=== PATIENT | female | born 1980 | race American Indian/Alaskan Native ===

== ENCOUNTER 2017-02-06 13:34 | Emergency (ER) | payer BC ==
[2017-02-06 13:46] VITALS: BP 121/80
[2017-02-06] MEDS ORDERED: HYDROmorphone 1 MG/ML Syringe IVPUSH ONE (13:58)
[2017-02-06] MEDS ORDERED: Metoclopramide 10 MG/2 ML SDV IVPUSH ONE (13:58)
[2017-02-06] MEDS ORDERED: Dextrose 5%-0.9% NaCl 1,000 ML IV SCH (14:00)
--- NOTE | 2017-02-06 14:02 | EDM.PDOC ---
ED HPI GENERAL MEDICAL PROBLEM - General Chief Complaint: Abdominal Pain Stated Complaint: ABDOMINAL PAIN- 14 WEEKS Time Seen by Provider: 02/06/17 13:58 Source of Information: Reports: Patient History Limitations: Reports: No Limitations - History of Present Illness INITIAL COMMENTS - FREE TEXT/NARRATIVE: 36-year-old female of [place] ancestry presents to the ED with acute onset of left flank pain rating down towards the left groin. She states initial pain started in the left lower abdomen suprapubic area on Monday, February 03. She was seen at the clinic and I [facility] walk-in clinic on Monday and was given a shot of morphine which did help the pain. She was also prescribed antibiotic for suspected UTI but never filled them. Now she has some fever some chills. Pain has progressed up to the left flank. She is 14 weeks gestation with no problems in the . Previous history of kidney stones and requiring lithotripsy but she can`t remeber which side. No other abdominal surgeries. Can not keep anything down today with intractable nausea and vomiting. Onset: Gradual (Starting on Monday, February 03 with slight lower abdominal pain perhaps slight left flank pain.) Onset Date: 02/06/17 (Pain became much worse yesterday and overnight.) Duration: Hour(s): Location: Reports: Abdomen (Left flank left hemiabdomen down to the groin.), Back, Other Quality: Reports: Ache (Some discomfort suprapubically and perhaps a little bit in the right lower abdomen as well.), Burning, Pressure Severity: Severe (Pain 10 out of 10 at times.) Improves with: Reports: None Worsens with: Reports: None Context: Denies: Activity, Exercise, Lifting, Sick Contact, Trauma, Other Associated Symptoms: Reports: Fever/Chills, Loss of Appetite, Malaise, Nausea/ Vomiting (Hasn't been able to keep anything down for the last 12 hours.). 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: Other (see below) Left Flank Pain Score (Numeric/FACES): 9 - Related Data Allergies Allergy/AdvReac Type Severity Reaction Status Date / Time No Known Allergies Allergy Verified 02/06/17 13:46 Home Meds: Home Meds Acetaminophen with Codeine [Tylenol with Codeine #3 Tablet] 1 each PO DAILY PRN 02/06/17 [History] Amoxicillin [Amoxil] 500 mg PO Q8H #21 cap 02/06/17 [Rx] Ondansetron [Zofran ODT] 4 mg PO Q6H #10 tab.dis 02/06/17 [Rx] oxyCODONE HCl/Acetaminophen [Percocet 5-325 mg Tablet] 1 each PO Q4H #24 tablet 02/06/17 [Rx] Past Medical History - Past Health History Medical/Surgical History: Denies Medical/Surgical History Genitourinary History: Reports: 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 Denies: Weight Loss HEENT: Reports: No Symptoms Respiratory: Denies: Shortness of Breath, Wheezing, Pleuritic Chest Pain, Cough , Sputum, Hemoptysis, Other Cardiovascular: Reports: No Symptoms Endocrine: Reports: Fatigue GI/Abdominal: Reports: Abdominal Pain, Decreased Appetite, Nausea, Vomiting ( Intractable this morning.). Denies: Constipation (See history of present illness), Diarrhea : Reports: Frequency. Denies: Urgency Musculoskeletal: Reports: Back Pain Skin: Reports: No Symptoms (Left flank pain) Neurological: Reports: No Symptoms Psychiatric: Reports: No Symptoms Hematologic/Lymphatic: Reports: No Symptoms Immunologic: Reports: No Symptoms ED EXAM, RENAL/ - Physical Exam Exam: See Below Exam Limited By: No Limitations General Appearance: Alert, WD/WN, Moderate Distress Eye Exam: Bilateral Eye: Normal Inspection Throat/Mouth: Normal Inspection, Normal Oropharynx, Other Head: Atraumatic, Normocephalic (Tongue is dry and coated) Neck: Normal Inspection, Supple, Non-Tender, Full Range of Motion. No: Lymphadenopathy (L), Lymphadenopathy (R) Respiratory/Chest: No Respiratory Distress, Lungs Clear, Normal Breath Sounds, No Accessory Muscle Use GI/Abdominal: Soft, No Organomegaly (Slightly hypoactive bowel sounds.), No Abnormal Bruit (Gravid uterus at 14 weeks gestation clinically.), No Mass, Pelvis Stable, Abnormal Bowel Sounds, Other. No: Rigid, Rebound, Hepatomegaly, Splenomegaly Back Exam: CVA Tenderness (L), Decreased Range of Motion Extremities: Normal Inspection, Normal Range of Motion, Non-Tender, No Pedal Edema, Normal Capillary Refill Neurological: Alert, Oriented, CN II-XII Intact, Normal Cognition Psychiatric: Normal Affect, Normal Mood Skin Exam: Warm, Dry, Intact, Normal Color, No Rash Course - Vital Signs Last Recorded V/S: Last Vital Signs Temp 36.2 C 02/06/17 13:43 Pulse 73 02/06/17 13:43 Resp 18 02/06/17 13:43 BP 121/80 02/06/17 13:43 Pulse Ox 98 02/06/17 13:43 - Orders/Labs/Meds Orders: Active Orders 24 hr Category Date Time Status Dextrose 5%-0.9% NaCl [Dextrose 5%-Normal Saline] 1,000 Med 02/06/17 14:00 Active ml IV ASDIRECTED Medication Orders Dextrose/Sodium Chloride (Dextrose 5%-Normal Saline) 1,000 mls @ 999 mls/hr IV ASDIRECTED ROBERTO Last Admin: 02/06/17 14:08 Dose: 999 mls/hr Labs: Laboratory Tests 02/06/17 02/06/17 02/06/17 Range/Units 14:00 14:00 15:40 WBC 9.78 (3.98-10.04) K/mm3 RBC 4.19 (3.98-5.22) M/mm3 Hgb 12.2 (11.2-15.7) gm/L Hct 36.4 (34.1-44.9) % MCV 86.9 (79.4-94.8) fl MCH 29.1 (25.6-32.2) pg MCHC 33.5 (32.2-35.5) g/dl RDW Std Deviation 40.3 (36.4-46.3) fL Plt Count 234 (182-369) K/mm3 MPV 11.0 (9.4-12.3) fl Neutrophils % (Manual) 84 H (40-60) % Band Neutrophils % 0 (0-10) % Lymphocytes % (Manual) 8 L (20-40) % Atypical Lymphs % 0 % Monocytes % (Manual) 6 (2-10) % Eosinophils % (Manual) 2 (0.7-5.8) % Basophils % (Manual) 0 L (0.1-1.2) Toxic Granulation Few Platelet Estimate Adequate Plt Morphology Comment Normal Anisocytosis 1+ slight RBC Morph Comment Not Reportable Sodium 140 (136-145) mEq/L Potassium 3.5 (3.5-5.1) mEq/L Chloride 105 (98-107) mEq/L Carbon Dioxide 21 (21-32) mEq/L Anion Gap 17.5 H (5-15) BUN 7 (7-18) mg/dL Creatinine 0.6 (0.55-1.02) mg/dL Est Cr Clr Drug Dosing 104.49 mL/min Estimated GFR (MDRD) > 60 (>60) mL/min BUN/Creatinine Ratio 11.7 L (14-18) Glucose 102 (74-106) mg/dL Calcium 8.9 (8.5-10.1) mg/dL Total Bilirubin 0.3 (0.2-1.0) mg/dL AST 18 (15-37) U/L ALT 21 (14-59) U/L Alkaline Phosphatase 92 (46-116) U/L C-Reactive Protein 2.1 H* (<1.0) mg/dL Total Protein 7.2 (6.4-8.2) g/dl Albumin 3.1 L (3.4-5.0) g/dl Globulin 4.1 gm/dL Albumin/Globulin Ratio 0.8 L (1-2) Urine Color Yellow (Yellow) Urine Appearance Clear (Clear) Urine pH 7.0 (5.0-8.0) Ur Specific [place] 1.020 (1.005-1.030) Urine Protein 1+ H (Negative) Urine Glucose (UA) 1+ H (Negative) Urine Ketones 3+ H (Negative) Urine Occult Blood Trace-intact H (Negative) Urine Nitrite Negative (Negative) Urine Bilirubin 1+ H (Negative) Urine Urobilinogen 1.0 (0.2-1.0) Ur Leukocyte Esterase Negative (Negative) Urine RBC 5-10 H (0-5) /hpf Urine WBC 0-5 (0-5) /hpf Ur Epithelial Cells 10-20 H (0-5) /hpf Amorphous Sediment Few H (NOT SEEN) /hpf Urine Bacteria Few (FEW) /hpf Urine Mucus Few (FEW) /hpf Meds: Medications Generic Name Dose Route Start Last Admin Trade Name Madan PRN Reason Stop Dose Admin Dextrose/Sodium Chloride 1,000 mls @ 999 mls/hr 02/06/17 14:00 02/06/17 14:08 Dextrose 5%-Normal Saline IV 999 mls/hr ASDIRECTED ROBERTO Administration Discontinued Medications Generic Name Dose Route Start Last Admin Trade Name Freq PRN Reason Stop Dose Admin Hydromorphone HCl 1 mg 02/06/17 13:58 02/06/17 14:10 Dilaudid IVPUSH 02/06/17 13:59 1 mg ONETIME ONE Administration Metoclopramide HCl 7.5 mg 02/06/17 13:58 02/06/17 14:08 Reglan IVPUSH 02/06/17 13:59 7.5 mg ONETIME ONE Administration - Radiology Interpretation Free Text/Narrative:: 36-year-old female presents to the ED with diffuse left myranda-abdominal pain left flank pain. She claims to have fever and chills she is afebrile at this time. She has a history of renal lithiasis with previous lithotripsy but Member which side it was on. She had pain in her left flank area a bit on Monday but diffuse lower abdominal pain started the following day and seemed to progress upwards towards the flanks suggesting urinary tract infection. Of note she is 14 weeks gestation. She therefore cannot have x-rays of course and will have ultrasound of her left kidney carried out. Routine labs including else is to be done. Since she is afebrile I did not order blood cultures at this time. She is in quite significant pain. Given Dilaudid 1 mg IV with Reglan 7.5 mg IV for pain relief. IV is D5 normal saline at open since she has not been able to eat or drink at all today due to intractable nausea and vomiting. I history she was diagnosed with his suspect UTI at the clinic on Monday but did not fill the antibiotics. She got a shot of morphine which seemed to help the pain at that time - Re-Assessments/Exams Free Text/Narrative Re-Assessment/Exam: 02/06/17 16:15 renal ultrasound revealed a 6 mm suspect nonobstructing stone within the left renal parenchyma. There is slightly prominent upper pole of the collecting system seen within the left kidney which could represent a obstructing stone that we cannot visualize. There is no other findings of significant hydronephrosis. The right kidney is 11.9 cm in length and the left is 12.9. Urinalysis now done does not reveal any signs of infection. There is 5- 10 RBCs per power field and 3+ blood on the dip. This suggests a stone. Clinically this is the way she is presenting as well. I'm going to place her on Percocet tabs 12/21/24 one or 2 every 4-6 hours needed for pain relief with Zofran 4 mg sublingual every 4-6 hours. For nausea or vomiting. Will cover with antibiotic because of the will use amoxicillin 500 mg 3 times daily for the next week. She is to strain the urine if the stone is not passed in the next week she will follow-up with urology because of complications of . Departure - Departure Time of Disposition: 16:17 Disposition: Home, Self-Care 01 Condition: Fair Clinical Impression: Flank pain, Renal colic on left side - Discharge Information Prescriptions: Amoxicillin [Amoxil] 500 mg PO Q8H #21 cap Ondansetron [Zofran ODT] 4 mg PO Q6H #10 tab.dis oxyCODONE HCl/Acetaminophen [Percocet 5-325 mg Tablet] 1 each PO Q4H #24 tablet Instructions: Renal Colic, [id number], Flank Pain Referrals: Patti Lagos MD [Primary Care Provider] - Forms: ED Department Discharge Additional Instructions: Evaluation in the emergency room today in regards to severe left flank pain so she with nausea and vomiting today. Pain started 4 days ago and has been intermittent but much worse over the last 24 hours. Complicated by being 14 weeks . This does not allow us to x-ray or use CT. Ultrasound of the left kidney reveals it to be slightly more prominent than the right side and suggestive of upper pole of the ureter being slightly dilated suggesting a possible stone low this. There is a 6 mm stone within the tissue of the left kidney. No stones were identified on the right side. The urinalysis shows 5-10 red blood cells per high-power field and no signs of infection. Therefore it appears to likely have a recurrence of a stone on the left side. At this time we 're going to adopt a wait and see approach and see if the stone will pass on its own over the next 7-8 days. May use Percocet tablets 5/3/25 milligrams strength one or 2 every 4-6 hours needed for pain relief. Her nausea may use Zofran 4 mg under the tongue every 4-6 hours as needed. Amoxicillin 500 mg 3 times daily for the next week to prevent any infection developing from obstruction of the stone as this could potentially complicate the . Strain the urine to see if the stone has passed. Particularly when the pain comes down into the right groin. If the stone fails to pass by next Monday then I suggest follow-up with urologist is required. An MRI of the abdomen could be done to identify stone obstruction and then have it lithotripsy in the early part of . If we wait too long the will be too large to allow lithotripsy. - My Orders Last 24 Hours: My Active Orders 02/06/17 14:00 Dextrose 5%-0.9% NaCl [Dextrose 5%-Normal Saline] 1,000 ml IV ASDIRECTED - Assessment/Plan Last 24 Hours: My Active Orders 02/06/17 14:00 Dextrose 5%-0.9% NaCl [Dextrose 5%-Normal Saline] 1,000 ml IV ASDIRECTED
--- NOTE | 2017-02-06 15:19 | US ---
Renal ultrasound: Multiple real-time images of the kidneys were obtained. Small hyperechoic area is seen within the mid left kidney which is compatible with nonobstructing stone measuring about 6 mm. Slightly prominent upper pole collecting system is seen within the left kidney. No other findings of hydronephrosis are seen. No cyst or solid abnormality is seen within the kidneys. Right kidney measures 11.9 cm in length. Left kidney measures 12.9 cm in length. Impression: 1. Slightly prominent upper pole collecting system within the left kidney but no other findings of hydronephrosis are seen. This finding could represent early hydronephrosis from nonvisualized ureteral obstruction. 2. Small nonobstructing stone noted within the left kidney. 3. No additional abnormality is identified on renal ultrasound exam. Diagnostic code #3
== END 2017-02-06 16:35 | disposition home or self-care (01) ==
LOC: JD.ED 13:34
DX: O26.832 Pregnancy related renal disease, second trimester (principal); N23 Unspecified renal colic; Z87.891 Personal history of nicotine dependence; Z79.899 Other long term (current) drug therapy; Z3A.14 14 weeks gestation of pregnancy
CPT/HCPCS: 36415; 76770; 80053; 81001; 85025; 86140; 96361; 96374; 96375; 99284; J1170; J2765; J7042

== ENCOUNTER 2017-02-26 01:24 | Emergency (ER) | payer BC ==
[2017-02-26 01:29] VITALS: BP 102/59
[2017-02-26] MEDS ORDERED: HYDROmorphone 1 MG/ML Syringe IVPUSH ONE (01:35)
--- NOTE | 2017-02-26 02:14 | EDM.PDOC ---
ED HPI GENERAL MEDICAL PROBLEM - General Chief Complaint: Abdominal Pain Stated Complaint: [facility] Time Seen by Provider: 02/26/17 01:40 Source of Information: Reports: Patient History Limitations: Reports: No Limitations - History of Present Illness INITIAL COMMENTS - FREE TEXT/NARRATIVE: This is a 36-year-old female. She was seen up in [facility] this evening at the [facility] ER due to left flank and left lower quadrant abdominal pain. She states she's passed a couple of stones in the last several weeks. Due to the increasing pain she had to go to [facility] ER and since they don't have ultrasound capability they transferred her down here for evaluation at the patient's request. They did do blood work and a urine. The urine showed red blood cells but no evidence of infection. The rest of her blood work was essentially normal. About one month ago she was here in the ER for left flank pain and they did an ultrasound and did not actually see a stone but evidence that she might have a stone with some mild hydronephrosis. The pain now is in the left lower quadrant and almost into the groin area. She's had to have lithotripsy in the past due to very large stones and she is concerned that the stone might be too large to pass. I explained to her that even if she has a stone they can't break it up because she is they can't go get it because she is and they will not do a CT scan because she is . She states she is not had any problems no vaginal bleeding and no other problems. She denies any fever or chills. She does have nausea and vomiting with a left flank pain. 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 Social & Family History - Family History Endocrine/Metabolic: Reports: Diabetes, type II - Tobacco Use Smoking Status *Q: Never Smoker Used Tobacco, but Quit: Yes Month Tobacco Last Used: "many years ago" Second Hand Smoke Exposure: No - Caffeine Use Caffeine Use: Reports: Coffee, Soda - Recreational Drug Use Recreational Drug Use: No - Living Situation & Occupation Living situation: Reports: Occupation: Employed ED ROS GENERAL - Review of Systems Review Of Systems: See Below Constitutional: Denies: Fever, Chills HEENT: Reports: No Symptoms Respiratory: Reports: No Symptoms Cardiovascular: Reports: No Symptoms Endocrine: Reports: No Symptoms GI/Abdominal: Reports: Abdominal Pain, Nausea, Vomiting : Reports: Flank Pain. Denies: Dysuria Musculoskeletal: Reports: No Symptoms Skin: Reports: No Symptoms Neurological: Reports: No Symptoms Psychiatric: Reports: No Symptoms Hematologic/Lymphatic: Reports: No Symptoms ED EXAM, RENAL/ - Physical Exam Exam: See Below Exam Limited By: No Limitations General Appearance: Alert, WD/WN, Mild Distress Eye Exam: Bilateral Eye: Normal Inspection Ears: Normal External Exam Nose: Normal Inspection Throat/Mouth: Normal Lips, Normal Voice Head: Normocephalic Neck: Supple Respiratory/Chest: No Respiratory Distress, Lungs Clear Cardiovascular: Regular Rate, Rhythm, No Murmur GI/Abdominal: Soft, Other (Patient is gravid, her tenderness is in the left flank and the left lower quadrant and palpation of that area reveals some mild tenderness but no guarding no rebound is noted, she has no right sided abdominal pain, it should be noted that heart tones were found in [facility] to be 160 bpm) Back Exam: Full Range of Motion Extremities: Normal Inspection, Normal Range of Motion Neurological: Alert, Oriented Psychiatric: Anxious Skin Exam: Warm, Dry Course - Vital Signs Last Recorded V/S: Last Vital Signs Temp 97.3 F 02/26/17 01:26 Pulse 78 02/26/17 01:26 Resp 16 02/26/17 01:26 BP 102/59 L 02/26/17 01:26 Pulse Ox 96 02/26/17 01:26 - Orders/Labs/Meds Orders: Active Orders 24 hr Category Date Time Status OB Ltd 1 or More Fetus [US] Stat Exams 02/26/17 03:23 Taken Retroperitoneal Comp [US] Stat Exams 02/26/17 01:40 Taken Meds: Medications Discontinued Medications Generic Name Dose Route Start Last Admin Trade Name Madan PRN Reason Stop Dose Admin Hydromorphone HCl 1 mg 02/26/17 01:35 02/26/17 01:43 Dilaudid IVPUSH 02/26/17 01:36 1 mg ONETIME ONE Administration Hydromorphone HCl 0.5 mg 02/26/17 03:09 02/26/17 03:23 Dilaudid IVPUSH 02/26/17 03:10 0.5 mg ONETIME ONE Administration - Radiology Interpretation Free Text/Narrative:: Ultrasound of the kidneys reveals some left nephrolithiasis but no stone in the ureter. The also has some mild left hydronephrosis but no stone is seen. The ultrasound of the baby reveals a heart rate 16 weeks 6 days no acute findings. - Re-Assessments/Exams Free Text/Narrative Re-Assessment/Exam: 02/26/17 04:45 I spoke to the patient regarding the ultrasound report. If she does have a stone is going down the ureter causing the left hydronephrosis it is very small because the ultrasound was not able to pick it up. This means that it is small enough to pass. I've encouraged her to continue to drink lots of fluids and call her OB doctor this week to see if there is anything they might be able to do to help with passing the stone. Departure - Departure Time of Disposition: 04:46 Disposition: Home, Self-Care 01 Condition: Fair Clinical Impression: Abdominal pain, left lower quadrant, Hydronephrosis, left, Left nephrolithiasis - Discharge Information Prescriptions: Hydrocodone/Acetaminophen [Hydrocodon-Acetaminophen 5-325] 1 each PO Q4H PRN # 12 tablet PRN Reason: Pain Promethazine [Phenergan] 25 mg PO Q6H PRN #12 tablet PRN Reason: Nausea Referrals: Deedee Lizarraga MD [Physician] - Forms: ED Department Discharge Additional Instructions: Continue to drink lots of water and juices, strain your urine for the kidney stone, take the medicine for pain and nausea as needed, call your OB doctor on Monday to see if she knows of anything they can do to help the kidney stone pass , return to the ER if needed - My Orders Last 24 Hours: My Active Orders 02/26/17 01:40 Retroperitoneal Comp [US] Stat 02/26/17 03:23 OB Ltd 1 or More Fetus [US] Stat - Assessment/Plan Last 24 Hours: My Active Orders 02/26/17 01:40 Retroperitoneal Comp [US] Stat 02/26/17 03:23 OB Ltd 1 or More Fetus [US] Stat
[2017-02-26] MEDS ORDERED: HYDROmorphone 0.5 MG/0.5 ML Syringe IVPUSH ONE (03:09)
--- NOTE | 2017-02-27 09:54 | US ---
Renal ultrasound: Multiple real-time images of both kidneys were obtained. Mild left-sided hydronephrosis is seen. Small nonobstructing calculi are seen within the left kidney. Right kidney is unremarkable. Resistivity indices are normal within both kidneys. No bilateral ureteral jets are seen within either kidney. Measurements: Right kidney length: 10.7 cm Left kidney likely: 12.4 cm Impression: 1. Mild left-sided hydronephrosis. This is nonspecific regarding hydronephrosis of versus nonvisualized ureteral obstruction. 2. Small nonobstructing calculi are seen within the left kidney. 3. Nonvisualized ureteral jets on both sides suggesting an element of dehydration. Diagnostic code #3 Agree with preliminary report issued by [employer] ([facility] preliminary report dictated on 02/26/17, 4:41 AM Central Time)
--- NOTE | 2017-02-27 09:54 | US ---
Limited obstetrical ultrasound: Multiple real-time images were obtained transabdominally. Comparison: Previous obstetrical ultrasound is not available. Dates: Current ultrasound: [facility]ERMAINE 08/07/17, gestational age 16 weeks 6 days presentation: Transverse Placenta: Posterior, inferior extent of the placenta not able to be visualized due to transient uterus contraction, no discrete findings of abruption are seen Amniotic fluid: PRICILLA 10.5 cm Measurements: BPD: 3.45 cm - 16 weeks 5 days Head circumference: 13.04 cm - 16 weeks 5 days Abdominal circumference: 10.96 cm - 16 weeks 6 days Femur length: 2.34 cm - 17 weeks 0 days Estimated weight: 173 g (0 lbs. 6 oz.), estimated weight at the 45th percentile Heart rate: 140 bpm Maternal adnexa: Unremarkable Impression: 1. Inferior extent of the placenta not seen due to transient uterine contraction. No abruption is seen. 2. Single intrauterine fetus currently transverse lie. Dates as noted above. 2. No complicating process is seen by ultrasound Diagnostic code #2 I agree with preliminary report issued by [employer] ([facility] preliminary report dictated on 02/26/17, 5:21 AM Central Time)
== END 2017-02-26 06:47 | disposition home or self-care (01) ==
LOC: JD.ED 01:24
DX: N13.2 Hydronephrosis with renal and ureteral calculous obstruction (principal); Z87.442 Personal history of urinary calculi
CPT/HCPCS: 76770; 76815; 96374; 96376; 99285; J1170; 99283

== ENCOUNTER 2017-07-31 07:07 | Inpatient (IN) | payer BC, OTHER ==
[2017-07-31] MEDS ORDERED: Ondansetron 4 MG/2 ML SDV IVPUSH PRN ×2 (07:19→19:47)
[2017-07-31] MEDS ORDERED: Sodium Chloride 0.9% 10 ML Syringe FLUSH PRN (07:19)
[2017-07-31] MEDS ORDERED: Oxytocin/Lactated Ringers 10 UNIT/1,000 ML BAG IV SCH ×2 (07:30)
[2017-07-31] MEDS ORDERED: Ampicillin 2 GM in Sodium Chloride 0.9% 100 ML IV ONE (08:00)
[2017-07-31] MEDS: Lactated Ringers 1,000 ML IV SCH ×2 (08:45→18:56)
--- NOTE | 2017-07-31 09:13 | PCM.LDHP ---
L&D History of Present Illness - General Date of Service: 07/31/17 Admit Problem/Dx: Patient Status Order with Admit Dx/Problem 07/31/17 07:19 Patient Status [ADT] Routine Admission Diagnosis/Problem Admission Diagnosis/Problem Normal Source of Information: Patient History Limitations: Reports: No Limitations - History of Present Illness Introduction:: Patient is a 36 y/o at 39 0/7 wks who presented today for planned IOL given grand multiparity and distance from hospital. However, on admission notes contractions which started early this AM. Reports these are painful. Denies LOF or VB. 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 : 7 Para: 5 LMP (Approximate): - Past Surgical History Female Surgical History: Reports: Cystoscopy, Ureteral Stent Social & Family History - Family History Family Medical History: Noncontributory Endocrine/Metabolic: Reports: Diabetes, type II - Tobacco Use Smoking Status *Q: Never Smoker Used Tobacco, but Quit: Yes Month Tobacco Last Used: "many years ago" Second Hand Smoke Exposure: No - Caffeine Use Caffeine Use: Reports: Coffee, Soda - Alcohol Use Alcohol Use History: No - Recreational Drug Use Recreational Drug Use: No - Living Situation & Occupation Living situation: Reports: Occupation: Employed H&P Review of Systems - Review of Systems: Review Of Systems: See Below General: Reports: No Symptoms Pulmonary: Reports: No Symptoms Cardiovascular: Reports: No Symptoms Gastrointestinal: Reports: Abdominal Pain Genitourinary: Reports: No Symptoms Musculoskeletal: Reports: No Symptoms Psychiatric: Reports: No Symptoms Neurological: Reports: No Symptoms L&D Exam - Exam Exam: See Below - Vital Signs Vital Signs: Last Vital Signs Temp Pulse 88 07/31/17 08:30 Resp BP 107/68 07/31/17 08:30 Pulse Ox - OB Specific Contraction Intensity: Moderate Movement: Active Heart Tones: Present Heart Tones per Min: 140 Heart Rate (FHR) Variability: Moderate (6-25 bmp) Presentation: Vertex - Sierra Score Sierra Score Cervix Position: Midposition Sierra Score Consistency: Soft Sierra Score Effacement: 51-70% Sierra Score Dilation: 1-2 cm Sierra Score 's Station: -2 Sierra Score Total: 7 - Exam General: Alert, Oriented, Cooperative Lungs: Clear to Auscultation, Normal Respiratory Effort Cardiovascular: Regular Rate, Regular Rhythm GI/Abdominal Exam: Soft, Non-Tender Genitourinary: Normal external exam Extremities: Normal Inspection Skin: Warm, Dry, Intact - Patient Data Lab Results Last 24 hrs: Laboratory Results - last 24 hr 07/31/17 Range/Units 08:30 WBC 9.15 (3.98-10.04) K/mm3 RBC 3.88 L (3.98-5.22) M/mm3 Hgb 9.2 L (11.2-15.7) gm/L Hct 30.0 L (34.1-44.9) % MCV 77.3 L (79.4-94.8) fl MCH 23.7 L (25.6-32.2) pg MCHC 30.7 L (32.2-35.5) g/dl RDW Std Deviation 40.9 (36.4-46.3) fL Plt Count 263 (182-369) K/mm3 MPV 10.0 (9.4-12.3) fl Result Diagrams: 07/31/17 08:30 - Problem List (1) 39 weeks gestation of SNOMED Code(s): 30055883 ICD Code: Z3A.39 - 39 WEEKS GESTATION OF Status: Acute Current Visit: Yes (2) Normal labor SNOMED Code(s): 91859359 ICD Code: O80 - ENCOUNTER FOR FULL-TERM UNCOMPLICATED DELIVERY; Z37.9 - OUTCOME OF DELIVERY, UNSPECIFIED Status: Acute Current Visit: Yes (3) GBS (group B Streptococcus carrier), +RV culture, currently SNOMED Code(s): 1999633296698, 5665090284681 ICD Code: O99.820 - STREPTOCOCCUS B CARRIER STATE COMPLICATING Status: Acute Current Visit: Yes Problem List Initiated/Reviewed/Updated: Yes Orders Last 24hrs: Active Orders 24 hr Category Date Time Status Patient Status [ADT] Routine ADT 07/31/17 07:19 Active Activity as Tolerated [RC] PFP Care 07/31/17 07:19 Active Communication Order [RC] ASDIRECTED Care 07/31/17 07:19 Active Communication Order [RC] ASDIRECTED Care 07/31/17 07:19 Active Communication Order [RC] ASDIRECTED Care 07/31/17 07:19 Active Heart Tones [RC] ASDIRECTED Care 07/31/17 07:19 Active Notify Provider [RC] ASDIRECTED Care 07/31/17 07:19 Active Notify Provider [RC] PFP Care 07/31/17 07:19 Active Notify Provider [RC] PRN Care 07/31/17 07:19 Active Peripheral IV Care [RC] . DIRECTED Care 07/31/17 07:21 Active Vital Signs [RC] PER UNIT ROUTINE Care 07/31/17 07:19 Active Regular Diet [DIET] Diet 07/31/17 Breakfast Active TYPE AND SCREEN [BBK] Routine Lab 07/31/17 08:30 Received Ampicillin 1 gm Med 07/31/17 12:00 Active Sodium Chloride 0.9% [Normal Saline] 100 ml IV Q4H Lactated Ringers [Ringers, Lactated] 1,000 ml Med 07/31/17 07:30 Active IV ASDIRECTED Nalbuphine [Nubain] Med 07/31/17 07:19 Active 10 mg IVPUSH Q2H PRN Ondansetron [Zofran] Med 07/31/17 07:19 Active 4 mg IVPUSH Q4H PRN Oxytocin/Lactated Ringers [Pitocin in LR 10 Units/1,000 Med 07/31/17 07:30 Active ML] 10 unit in 1,000 ml IV .CONTINUOUS Oxytocin/Lactated Ringers [Pitocin in LR 10 Units/1,000 Med 07/31/17 07:30 Active ML] 10 unit in 1,000 ml IV TITRATE Sodium Chloride 0.9% [Saline Flush] Med 07/31/17 07:19 Active 10 ml FLUSH ASDIRECTED PRN Electronic Heart Tones Ext w TOCO [WOMSER] Oth 07/31/17 07:19 Ordered Routine Electronic Heart Tones Internal [WOMSER] Per Unit Oth 07/31/17 07:19 Ordered Routine Peripheral IV Insertion Adult [OM.PC] Routine Oth 07/31/17 07:19 Ordered Resuscitation Status Routine Resus Stat 07/31/17 07:19 Ordered Medication Orders Ampicillin Sodium 1 gm/ Sodium (Chloride) 100 mls @ 200 mls/hr IV Q4H ROBERTO Lactated Ringer's (Ringers, Lactated) 1,000 mls @ 40 mls/hr IV ASDIRECTED ROBERTO Last Admin: 07/31/17 08:45 Dose: 40 mls/hr Oxytocin/Lactated Ringer's (Pitocin In Lr 10 Units/1,000 Ml) 10 unit in 1,000 mls @ 500 mls/hr IV .CONTINUOUS ROBERTO Oxytocin/Lactated Ringer's (Pitocin In Lr 10 Units/1,000 Ml) 10 unit in 1,000 mls @ 12 mls/hr IV TITRATE ROBERTO; 2 MUNITS/MIN PRN Reason: Protocol Nalbuphine HCl (Nubain) 10 mg IVPUSH Q2H PRN PRN Reason: Pain (moderate 4-6) Ondansetron HCl (Zofran) 4 mg IVPUSH Q4H PRN PRN Reason: Nausea/Vomiting Sodium Chloride (Saline Flush) 10 ml FLUSH ASDIRECTED PRN PRN Reason: Keep Vein Open Assessment/Plan Comment:: 36-year-old at 39-0/7 weeks gestation who was supposed to present today for planned induction of labor given distance from hospital, but actually presents in early labor. Will start ampicillin for GBS prophylaxis. Will defer in any other method of induction at this time. Will AROM at second dose of antibiotics if needed. CBC and type and screen. Pain management per patient preference.
[2017-07-31] MEDS: Ampicillin 1 GM in Sodium Chloride 0.9% 100 ML IV SCH ×3 (12:23→20:04)
--- NOTE | 2017-07-31 12:24 | PCM.PNLD ---
Labor Progress Note - VS & Meds Vital Signs: Last Vital Signs Temp Pulse 88 07/31/17 08:30 Resp BP 107/68 07/31/17 08:30 Pulse Ox Active Medications: Current Medications Ampicillin Sodium 1 gm/ Sodium (Chloride) 100 mls @ 200 mls/hr IV Q4H ROBERTO Last Admin: 07/31/17 12:23 Dose: 200 mls/hr Lactated Ringer's (Ringers, Lactated) 1,000 mls @ 40 mls/hr IV ASDIRECTED ROBERTO Last Admin: 07/31/17 08:45 Dose: 40 mls/hr Oxytocin/Lactated Ringer's (Pitocin In Lr 10 Units/1,000 Ml) 10 unit in 1,000 mls @ 500 mls/hr IV .CONTINUOUS ROBERTO Oxytocin/Lactated Ringer's (Pitocin In Lr 10 Units/1,000 Ml) 10 unit in 1,000 mls @ 12 mls/hr IV TITRATE ROBERTO; 2 MUNITS/MIN PRN Reason: Protocol Nalbuphine HCl (Nubain) 10 mg IVPUSH Q2H PRN PRN Reason: Pain (moderate 4-6) Ondansetron HCl (Zofran) 4 mg IVPUSH Q4H PRN PRN Reason: Nausea/Vomiting Sodium Chloride (Saline Flush) 10 ml FLUSH ASDIRECTED PRN PRN Reason: Keep Vein Open Discontinued Medications Ampicillin Sodium 2 gm/ Sodium (Chloride) 100 mls @ 200 mls/hr IV ONETIME ONE Stop: 07/31/17 08:29 Last Admin: 07/31/17 08:45 Dose: 200 mls/hr - Uterine Contractions Uterine Monitoring Mode: External [place] Contraction Intensity: Moderate - Monitoring Monitor Mode: External Ultrasound Heart Rate (FHR) Baseline: 135 Heart Rate (FHR) Variability: Moderate (6-25 bmp) Decelerations: None Strip Review: Category I - Vaginal Exam Dilation (cm): 3 Effacement (Percent): 70 Station: -2 Cervical Position: Midposition - Labor Progress (Free Text) Labor Progress: Doing well. About to receive 2nd dose of antibiotics. AROM performed with release of clear fluid. Continue present management
--- NOTE | 2017-07-31 16:38 | PCM.PNLD ---
Labor Progress Note - VS & Meds Vital Signs: Last Vital Signs Temp Pulse 82 07/31/17 12:21 Resp BP 124/71 07/31/17 12:21 Pulse Ox Active Medications: Current Medications Ampicillin Sodium 1 gm/ Sodium (Chloride) 100 mls @ 200 mls/hr IV Q4H ROBERTO Last Admin: 07/31/17 16:18 Dose: 200 mls/hr Lactated Ringer's (Ringers, Lactated) 1,000 mls @ 40 mls/hr IV ASDIRECTED ROBERTO Last Admin: 07/31/17 08:45 Dose: 40 mls/hr Oxytocin/Lactated Ringer's (Pitocin In Lr 10 Units/1,000 Ml) 10 unit in 1,000 mls @ 500 mls/hr IV .CONTINUOUS ROBERTO Oxytocin/Lactated Ringer's (Pitocin In Lr 10 Units/1,000 Ml) 10 unit in 1,000 mls @ 12 mls/hr IV TITRATE ROBERTO; 2 MUNITS/MIN PRN Reason: Protocol Last Admin: 07/31/17 16:14 Dose: 2 munits/min, 12 mls/hr Nalbuphine HCl (Nubain) 10 mg IVPUSH Q2H PRN PRN Reason: Pain (moderate 4-6) Ondansetron HCl (Zofran) 4 mg IVPUSH Q4H PRN PRN Reason: Nausea/Vomiting Sodium Chloride (Saline Flush) 10 ml FLUSH ASDIRECTED PRN PRN Reason: Keep Vein Open Discontinued Medications Ampicillin Sodium 2 gm/ Sodium (Chloride) 100 mls @ 200 mls/hr IV ONETIME ONE Stop: 07/31/17 08:29 Last Admin: 07/31/17 08:45 Dose: 200 mls/hr - Uterine Contractions Uterine Monitoring Mode: External [place] Contraction Intensity: Moderate - Monitoring Monitor Mode: External Ultrasound Heart Rate (FHR) Baseline: 130 Heart Rate (FHR) Variability: Moderate (6-25 bmp) Accelerations: Present, 15x15 Decelerations: None Strip Review: Category I - Labor Progress (Free Text) Labor Progress: Patient had contractions stopped after AROM. Pitocin started about 1 hour ago. Not feeling much yet. Will continue to increase per protocol
[2017-07-31] MEDS: Nalbuphine 20 MG/1 ML Amp IVPUSH PRN ×2 (17:30→19:30)
[2017-07-31] MEDS ORDERED: diphenhydrAMINE 50 MG/ML SDV IVPUSH PRN (19:47)
[2017-07-31] MEDS ORDERED: fentaNYL 100 MCG/2 ML SDV EPIDUR PRN (19:47)
[2017-07-31] MEDS ORDERED: ePHEDrine 50 MG/ML SDV IVPUSH PRN (19:47)
[2017-07-31] MEDS ORDERED: Bupivacaine/fentaNYL/NS 100 ML Bag EPIDUR SCH (20:00)
--- NOTE | 2017-07-31 20:22 | PCM.PREANE ---
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) Family History of Anesthesia Reaction: No Transfusion History: No Prior Transfusion(s) Intubation History: Unknown - Review of Systems General: No Symptoms Pulmonary: No Symptoms Cardiovascular: No Symptoms Gastrointestinal: No Symptoms Neurological: No Symptoms Other: Reports: None - Physical Assessment NPO Status Date: 07/31/17 NPO Status Time: 18:00 Pulse: 88 Blood Pressure: 108/50 Vital Signs: Last Vital Signs Temp Pulse 88 07/31/17 17:01 Resp BP 108/50 L 07/31/17 17:01 Pulse Ox Height: 1.57 m Weight: 93.894 kg ASA Class: 2 Mental Status: Alert & Oriented x3 Airway Class: Mallampati = 2 Dentition: Reports: Missing Tooth/Teeth (bottom rght molar ) Thyro-Mental Finger Breadths: 3 Mouth Opening Finger Breadths: 3 ROM/Head Extension: Full Lungs: Clear to Auscultation, Normal Respiratory Effort Cardiovascular: Regular Rate, Regular Rhythm - Lab Values: Laboratory Last Values WBC 9.15 K/mm3 (3.98-10.04) 07/31/17 08:30 RBC 3.88 M/mm3 (3.98-5.22) L 07/31/17 08:30 Hgb 9.2 gm/L (11.2-15.7) L 07/31/17 08:30 Hct 30.0 % (34.1-44.9) L 07/31/17 08:30 MCV 77.3 fl (79.4-94.8) L 07/31/17 08:30 MCH 23.7 pg (25.6-32.2) L 07/31/17 08:30 MCHC 30.7 g/dl (32.2-35.5) L 07/31/17 08:30 RDW Std Deviation 40.9 fL (36.4-46.3) 07/31/17 08:30 Plt Count 263 K/mm3 (182-369) 07/31/17 08:30 MPV 10.0 fl (9.4-12.3) 07/31/17 08:30 Blood Type A POSITIVE 07/31/17 08:30 Gel Antibody Screen Negative 07/31/17 08:30 - Allergies Allergies/Adverse Reactions: Allergies Allergy/AdvReac Type Severity Reaction Status Date / Time No Known Allergies Allergy Verified 02/26/17 06:04 - Blood Blood Available: No Product(s) Available: None - Anesthesia Plan Pre-Op Medication Ordered: None - Acknowledgements Anesthesia Type Planned: Epidural Pt an Appropriate Candidate for the Planned Anesthesia: Yes Alternatives and Risks of Anesthesia Discussed w Pt/Guardian: Yes Pt/Guardian Understands and Agrees with Anesthesia Plan: Yes PreAnesthesia Questionnaire - Past Health History Medical/Surgical History: Denies Medical/Surgical History Genitourinary History: Reports: Renal Calculus 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: , 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 - Past Surgical History Female Surgical History: Reports: Cystoscopy, Ureteral Stent - SUBSTANCE USE Smoking Status *Q: Never Smoker Tobacco Use Within Last Twelve Months: No Second Hand Smoke Exposure: No Recreational Drug Use History: No - CURRENT (IN HOUSE) MEDS Current Meds: Current Medications Diphenhydramine HCl (Benadryl) 25 mg IVPUSH Q6H PRN PRN Reason: Pruritis Ephedrine Sulfate (Ephedrine Sulfate) 5 mg IVPUSH ASDIRECTED PRN PRN Reason: Hypotension Fentanyl (Sublimaze) 100 mcg EPIDUR Q3H PRN PRN Reason: Pain Fentanyl/Bupivacaine HCl (Fentanyl/Bupivacaine/Ns 2 Mcg-0.125% 100 Ml) 100 ml EPIDUR ASDIRECTED ROBERTO Ampicillin Sodium 1 gm/ Sodium (Chloride) 100 mls @ 200 mls/hr IV Q4H ROBERTO Last Admin: 07/31/17 16:18 Dose: 200 mls/hr Lactated Ringer's (Ringers, Lactated) 1,000 mls @ 40 mls/hr IV ASDIRECTED ROBERTO Last Admin: 07/31/17 18:56 Dose: 500 mls/hr Oxytocin/Lactated Ringer's (Pitocin In Lr 10 Units/1,000 Ml) 10 unit in 1,000 mls @ 500 mls/hr IV .CONTINUOUS ROBERTO Oxytocin/Lactated Ringer's (Pitocin In Lr 10 Units/1,000 Ml) 10 unit in 1,000 mls @ 12 mls/hr IV TITRATE ROBERTO; 2 MUNITS/MIN PRN Reason: Protocol Last Titration: 07/31/17 18:24 Dose: 5 munits/min, 30 mls/hr Nalbuphine HCl (Nubain) 10 mg IVPUSH Q2H PRN PRN Reason: Pain (moderate 4-6) Last Admin: 07/31/17 17:30 Dose: 10 mg Ondansetron HCl (Zofran) 4 mg IVPUSH Q4H PRN PRN Reason: Nausea/Vomiting Ondansetron HCl (Zofran) 4 mg IVPUSH ONETIME PRN PRN Reason: Nausea/Vomiting Sodium Chloride (Saline Flush) 10 ml FLUSH ASDIRECTED PRN PRN Reason: Keep Vein Open Discontinued Medications Ampicillin Sodium 2 gm/ Sodium (Chloride) 100 mls @ 200 mls/hr IV ONETIME ONE Stop: 07/31/17 08:29 Last Admin: 07/31/17 08:45 Dose: 200 mls/hr
--- NOTE | 2017-07-31 20:32 | PCM.SN ---
- Free Text/Narrative Note: 07-31-17 Start 1999 End 2014 Chart reviewed, consent signed, questions answered, time out performed. Epidural kit prepped, skin localized with 1% lidocaine, 17ga tuhoy needle inserted at L4-5 until periosteum contacted. Redirected x2 with periosteum contacts and patient had a contraction so the needle was retracted. Approximately a total of 2-3 minutes used to attempt the epidural space before the patient stated she no longer wanted to proceed with the epidural. Educated the patient that if she waits longer and again decides to desire the epidural, it will probably be to late to try another attempt. Patient stated she was ok with that and stated she didn't want to proceed because she was scared she would get another PDPH. Sterile field taken down and materials discarded properly. Cyril Ng FOREST RANGER
--- NOTE | 2017-07-31 21:34 | PCM.DEL ---
L & D Note - General Info Date of Service: 07/31/17 - Delivery Note Labor: Induced by ARM, Induced by Oxytocin Delivery Outcome: Livebirth Infant Delivery Method: Spontaneous Vaginal Delivery-Single Infant Delivery Mode: Spontaneous Presentation: Right Occiput Anterior (AIDE) Nuchal Cord: None Anesthesia Type: None Amniotic Fluid Description: Clear Episiotomy Type: None Laceration: 1st Degree, Perineal Placenta: Intact, Spontaneous Cord: 3 Vessels Estimated Blood Loss: 250 : Bulb Syringe, Stimulated, Warmed, [place] Used Delivery Comments (Free Text/Narrative):: Patient found to be complete and began pushing. With maternal pushing effort head delivered from an AIDE presentation. No nuchal cord present. With gentle downward the shoulders and body delivered. Infant placed on maternal abdomen. Cord clamped and cut. Cord blood obtained. Placenta allowed time to separate and expelled. Inspection of the perineum showed a small 1st degree abrasion which was hemostatic and so not repaired. - Patient Data Vitals - Most Recent: Last Vital Signs Temp Pulse 88 07/31/17 20:22 Resp BP 108/50 L 07/31/17 20:22 Pulse Ox Weight - Most Recent: 93.894 kg I&O - Last 24 Hours: Intake & Output 07/31/17 07/31/17 07/31/17 06:59 14:59 22:59 Intake Total 200 100 Balance 200 100 Lab Results Last 24 Hours: Laboratory Results - last 24 hr 07/31/17 07/31/17 Range/Units 08:30 08:30 WBC 9.15 (3.98-10.04) K/mm3 RBC 3.88 L (3.98-5.22) M/mm3 Hgb 9.2 L (11.2-15.7) gm/L Hct 30.0 L (34.1-44.9) % MCV 77.3 L (79.4-94.8) fl MCH 23.7 L (25.6-32.2) pg MCHC 30.7 L (32.2-35.5) g/dl RDW Std Deviation 40.9 (36.4-46.3) fL Plt Count 263 (182-369) K/mm3 MPV 10.0 (9.4-12.3) fl Blood Type A POSITIVE Gel Antibody Screen Negative Med Orders - Current: Current Medications Diphenhydramine HCl (Benadryl) 25 mg IVPUSH Q6H PRN PRN Reason: Pruritis Ephedrine Sulfate (Ephedrine Sulfate) 5 mg IVPUSH ASDIRECTED PRN PRN Reason: Hypotension Fentanyl (Sublimaze) 100 mcg EPIDUR Q3H PRN PRN Reason: Pain Fentanyl/Bupivacaine HCl (Fentanyl/Bupivacaine/Ns 2 Mcg-0.125% 100 Ml) 100 ml EPIDUR ASDIRECTED ROBERTO Ampicillin Sodium 1 gm/ Sodium (Chloride) 100 mls @ 200 mls/hr IV Q4H ROBERTO Last Admin: 07/31/17 16:18 Dose: 200 mls/hr Lactated Ringer's (Ringers, Lactated) 1,000 mls @ 40 mls/hr IV ASDIRECTED ROBERTO Last Admin: 07/31/17 18:56 Dose: 500 mls/hr Oxytocin/Lactated Ringer's (Pitocin In Lr 10 Units/1,000 Ml) 10 unit in 1,000 mls @ 500 mls/hr IV .CONTINUOUS ROBERTO Oxytocin/Lactated Ringer's (Pitocin In Lr 10 Units/1,000 Ml) 10 unit in 1,000 mls @ 12 mls/hr IV TITRATE ROBERTO; 2 MUNITS/MIN PRN Reason: Protocol Last Titration: 07/31/17 18:24 Dose: 5 munits/min, 30 mls/hr Nalbuphine HCl (Nubain) 10 mg IVPUSH Q2H PRN PRN Reason: Pain (moderate 4-6) Last Admin: 07/31/17 17:30 Dose: 10 mg Ondansetron HCl (Zofran) 4 mg IVPUSH Q4H PRN PRN Reason: Nausea/Vomiting Ondansetron HCl (Zofran) 4 mg IVPUSH ONETIME PRN PRN Reason: Nausea/Vomiting Sodium Chloride (Saline Flush) 10 ml FLUSH ASDIRECTED PRN PRN Reason: Keep Vein Open Discontinued Medications Ampicillin Sodium 2 gm/ Sodium (Chloride) 100 mls @ 200 mls/hr IV ONETIME ONE Stop: 07/31/17 08:29 Last Admin: 07/31/17 08:45 Dose: 200 mls/hr - Problem List & Annotations (1) 39 weeks gestation of SNOMED Code(s): 23504903 Code(s): Z3A.39 - 39 WEEKS GESTATION OF Status: Acute Current Visit: Yes (2) Normal labor SNOMED Code(s): 04444430 Code(s): O80 - ENCOUNTER FOR FULL-TERM UNCOMPLICATED DELIVERY; Z37.9 - OUTCOME OF DELIVERY, UNSPECIFIED Status: Acute Current Visit: Yes (3) GBS (group B Streptococcus carrier), +RV culture, currently SNOMED Code(s): 8403226663581, 4855214536716 Code(s): O99.820 - STREPTOCOCCUS B CARRIER STATE COMPLICATING Status: Acute Current Visit: Yes (4) Vaginal delivery SNOMED Code(s): 581931911 Code(s): O80 - ENCOUNTER FOR FULL-TERM UNCOMPLICATED DELIVERY Status: Acute Current Visit: Yes - Problem List Review Problem List Initiated/Reviewed/Updated: Yes - My Orders Last 24 Hours: My Active Orders 07/31/17 07:19 Patient Status [ADT] Routine Activity as Tolerated [RC] PFP Communication Order [RC] ASDIRECTED Communication Order [RC] ASDIRECTED Communication Order [RC] ASDIRECTED Heart Tones [RC] ASDIRECTED Notify Provider [RC] ASDIRECTED Notify Provider [RC] PFP Notify Provider [RC] PRN Vital Signs [RC] PER UNIT ROUTINE Nalbuphine [Nubain] 10 mg IVPUSH Q2H PRN Ondansetron [Zofran] 4 mg IVPUSH Q4H PRN Sodium Chloride 0.9% [Saline Flush] 10 ml FLUSH ASDIRECTED PRN Electronic Heart Tones Ext w TOCO [WOMSER] Routine Electronic Heart Tones Internal [WOMSER] Per Unit Routine Peripheral IV Insertion Adult [OM.PC] Routine Resuscitation Status Routine 07/31/17 07:21 Peripheral IV Care [RC] . DIRECTED 07/31/17 07:30 Lactated Ringers [Ringers, Lactated] 1,000 ml IV ASDIRECTED Oxytocin/Lactated Ringers [Pitocin in LR 10 Units/1,000 ML] 10 unit in 1,000 ml IV .CONTINUOUS Oxytocin/Lactated Ringers [Pitocin in LR 10 Units/1,000 ML] 10 unit in 1,000 ml IV TITRATE 07/31/17 12:00 Ampicillin 1 gm Sodium Chloride 0.9% [Normal Saline] 100 ml IV Q4H 07/31/17 Breakfast Regular Diet [DIET] - Assessment Assessment:: 36 y/o G7 now [id number] PPD#0 from at 39 0/7 wks - Plan Plan:: * Routine cares * Bottle feeding * Discharge home in 1-2 days
[2017-07-31] MEDS ORDERED: Witch Hazel Medicated Pads 100/Jar TOP PRN (21:51)
[2017-07-31] MEDS ORDERED: Lanolin 100% Cream 7 GM Tube TOP PRN (21:51)
[2017-07-31] MEDS ORDERED: Benzocaine/Menthol 20%-0.5% Spray 56 GM Canister TOP PRN (21:51)
[2017-07-31] MEDS ORDERED: Docusate Sodium 100 MG Cap PO PRN (21:51)
[2017-07-31] MEDS: Ibuprofen 600 MG Tab PO PRN (23:00)
[2017-08-01] MEDS: Acetaminophen 325 MG Tab PO PRN ×2 (04:22→20:09)
--- NOTE | 2017-08-01 07:03 | PCM.PNPP ---
- General Info Date of Service: 08/01/17 Functional Status: Reports: Pain Controlled, Tolerating Diet, Ambulating, Urinating - Review of Systems General: Reports: No Symptoms Pulmonary: Reports: No Symptoms Cardiovascular: Reports: No Symptoms Gastrointestinal: Reports: No Symptoms Genitourinary: Reports: No Symptoms Musculoskeletal: Reports: No Symptoms Neurological: Reports: No Symptoms - Patient Data Vital Signs - Most Recent: Last Vital Signs Temp 36.7 C 08/01/17 04:18 Pulse 97 08/01/17 04:18 Resp 18 08/01/17 04:18 BP 119/77 08/01/17 04:18 Pulse Ox 97 08/01/17 04:18 Weight - Most Recent: 93.894 kg I&O - Last 24 Hours: Intake & Output 07/31/17 08/01/17 08/01/17 22:59 06:59 14:59 Intake Total 100 2000 Balance 100 1999 Lab Results - Last 24 Hours: Laboratory Results - last 24 hr 07/31/17 07/31/17 Range/Units 08:30 08:30 WBC 9.15 (3.98-10.04) K/mm3 RBC 3.88 L (3.98-5.22) M/mm3 Hgb 9.2 L (11.2-15.7) gm/L Hct 30.0 L (34.1-44.9) % MCV 77.3 L (79.4-94.8) fl MCH 23.7 L (25.6-32.2) pg MCHC 30.7 L (32.2-35.5) g/dl RDW Std Deviation 40.9 (36.4-46.3) fL Plt Count 263 (182-369) K/mm3 MPV 10.0 (9.4-12.3) fl Blood Type A POSITIVE Gel Antibody Screen Negative Med Orders - Current: Current Medications Acetaminophen (Tylenol) 650 mg PO Q4H PRN PRN Reason: mild pain or fever Last Admin: 08/01/17 04:22 Dose: 650 mg Benzocaine/Menthol (Dermoplast Pain Relief [place]) 0 gm TOP ASDIRECTED PRN PRN Reason: Perineal Comfort Measure Last Admin: 08/01/17 00:52 Dose: 1 canister Docusate Sodium (Colace) 100 mg PO BID PRN PRN Reason: Constipation Emollient Ointment (Lansinoh Hpa) 0 gm TOP ASDIRECTED PRN PRN Reason: Sore Nipples Ibuprofen (Motrin) 600 mg PO Q6H PRN PRN Reason: Mild pain or fever Last Admin: 07/31/17 23:00 Dose: 600 mg Witch Arianne (Tucks) 1 pad TOP ASDIRECTED PRN PRN Reason: Hemorrhoid pain Discontinued Medications Diphenhydramine HCl (Benadryl) 25 mg IVPUSH Q6H PRN PRN Reason: Pruritis Ephedrine Sulfate (Ephedrine Sulfate) 5 mg IVPUSH ASDIRECTED PRN PRN Reason: Hypotension Fentanyl (Sublimaze) 100 mcg EPIDUR Q3H PRN PRN Reason: Pain Fentanyl/Bupivacaine HCl (Fentanyl/Bupivacaine/Ns 2 Mcg-0.125% 100 Ml) 100 ml EPIDUR ASDIRECTED ROBERTO Ampicillin Sodium 2 gm/ Sodium (Chloride) 100 mls @ 200 mls/hr IV ONETIME ONE Stop: 07/31/17 08:29 Last Admin: 07/31/17 08:45 Dose: 200 mls/hr Ampicillin Sodium 1 gm/ Sodium (Chloride) 100 mls @ 200 mls/hr IV Q4H ROBERTO Last Admin: 07/31/17 20:04 Dose: 200 mls/hr Lactated Ringer's (Ringers, Lactated) 1,000 mls @ 40 mls/hr IV ASDIRECTED ROBERTO Last Admin: 07/31/17 18:56 Dose: 500 mls/hr Oxytocin/Lactated Ringer's (Pitocin In Lr 10 Units/1,000 Ml) 10 unit in 1,000 mls @ 500 mls/hr IV .CONTINUOUS ROBERTO Oxytocin/Lactated Ringer's (Pitocin In Lr 10 Units/1,000 Ml) 10 unit in 1,000 mls @ 12 mls/hr IV TITRATE ROBERTO; 2 MUNITS/MIN PRN Reason: Protocol Last Titration: 07/31/17 18:24 Dose: 5 munits/min, 30 mls/hr Nalbuphine HCl (Nubain) 10 mg IVPUSH Q2H PRN PRN Reason: Pain (moderate 4-6) Last Admin: 07/31/17 19:30 Dose: 10 mg Ondansetron HCl (Zofran) 4 mg IVPUSH Q4H PRN PRN Reason: Nausea/Vomiting Ondansetron HCl (Zofran) 4 mg IVPUSH ONETIME PRN PRN Reason: Nausea/Vomiting Sodium Chloride (Saline Flush) 10 ml FLUSH ASDIRECTED PRN PRN Reason: Keep Vein Open - Infant Interaction Infant Disposition, : [place] in Room with Family Infant Interaction: Holding Infant Feeding: Bottle Fed Infant Support Person: - Recovery Exam Fundal Tone: Firm Fundal Level: At Umbilicus Fundal Placement: Midline Lochia Amount: Scant Lochia Color: Rubra/Red Episiotomy/Laceration: Approximated Bladder Status: Voiding - Exam General: Alert, Oriented, Cooperative GI/Abdominal Exam: Soft, Non-Tender Extremities: Normal Inspection Skin: Warm, Dry, Intact - Problem List & Annotations (1) 39 weeks gestation of SNOMED Code(s): 92073459 Code(s): Z3A.39 - 39 WEEKS GESTATION OF Status: Acute Current Visit: Yes (2) Normal labor SNOMED Code(s): 99314848 Code(s): O80 - ENCOUNTER FOR FULL-TERM UNCOMPLICATED DELIVERY; Z37.9 - OUTCOME OF DELIVERY, UNSPECIFIED Status: Acute Current Visit: Yes (3) GBS (group B Streptococcus carrier), +RV culture, currently SNOMED Code(s): 9125321525125, 2773968300318 Code(s): O99.820 - STREPTOCOCCUS B CARRIER STATE COMPLICATING Status: Acute Current Visit: Yes (4) Vaginal delivery SNOMED Code(s): 263716957 Code(s): O80 - ENCOUNTER FOR FULL-TERM UNCOMPLICATED DELIVERY Status: Acute Current Visit: Yes - Problem List Review Problem List Initiated/Reviewed/Updated: Yes - My Orders Last 24 Hours: My Active Orders 07/31/17 07:19 Vital Signs [RC] PER UNIT ROUTINE Resuscitation Status Routine 07/31/17 21:51 Activity as Tolerated [RC] Vital Signs [RC] 04,12,20 Acetaminophen [Tylenol] 650 mg PO Q4H PRN Benzocaine/Menthol [Dermoplast Pain Relief [place]] See Dose Instructions TOP ASDIRECTED PRN Docusate Sodium [Colace] 100 mg PO BID PRN Ibuprofen [Motrin] 600 mg PO Q6H PRN Lanolin [Lansinoh HPA] See Dose Instructions TOP ASDIRECTED PRN Witch Arianne [Tucks] 1 pad TOP ASDIRECTED PRN Assess Lochia [WOMSER] Per Unit Routine Assess Uterine Involution [WOMSER] Per Unit Routine Breast Pump [WOMSER] Per Unit Routine Heat Therapy [OM.PC] PRN Ice Therapy [OM.PC] Per Unit Routine Perineal Care [OM.PC] Per Unit Routine Peripheral IV Discontinue [OM.PC] Routine Sitz Bath [OM.PC] Per Unit Routine 07/31/17 Dinner Regular Diet [DIET] 08/01/17 21:51 Heat Therapy [OM.PC] PRN - Assessment Assessment:: 36 y/o G7 now P6016 PPD#1 from at 39 0/7 wks - Plan Plan:: * Routine cares * Bottle feeding * Discharge home tomorrow
[2017-08-01] MEDS: Ibuprofen 600 MG Tab PO PRN ×2 (11:20→16:23)
[2017-08-01] MEDS ORDERED: Cyclobenzaprine 10 MG Tab PO PRN (22:16)
[2017-08-02] MEDS: Ibuprofen 600 MG Tab PO PRN (02:14)
[2017-08-02 04:48] VITALS: BP 111/59
--- NOTE | 2017-08-02 07:05 | PCM.PNPP ---
- General Info Date of Service: 08/02/17 Functional Status: Reports: Pain Controlled, Tolerating Diet, Ambulating, Urinating - Review of Systems General: Reports: No Symptoms Pulmonary: Reports: No Symptoms Cardiovascular: Reports: No Symptoms Gastrointestinal: Reports: No Symptoms Genitourinary: Reports: No Symptoms Musculoskeletal: Reports: No Symptoms Neurological: Reports: No Symptoms - Patient Data Vital Signs - Most Recent: Last Vital Signs Temp 36.7 C 08/02/17 03:20 Pulse 71 08/02/17 03:20 Resp 12 08/02/17 03:20 BP 111/59 L 08/02/17 03:20 Pulse Ox 97 08/02/17 03:20 Weight - Most Recent: 93.894 kg I&O - Last 24 Hours: Intake & Output 08/01/17 08/02/17 08/02/17 22:59 06:59 14:59 Intake Total 240 Balance 240 Med Orders - Current: Current Medications Acetaminophen (Tylenol) 650 mg PO Q4H PRN PRN Reason: mild pain or fever Last Admin: 08/01/17 20:09 Dose: 650 mg Benzocaine/Menthol (Dermoplast Pain Relief [place]) 0 gm TOP ASDIRECTED PRN PRN Reason: Perineal Comfort Measure Last Admin: 08/01/17 00:52 Dose: 1 canister Cyclobenzaprine HCl (Flexeril) 10 mg PO Q8HR PRN PRN Reason: back pain Last Admin: 08/01/17 22:33 Dose: 10 mg Docusate Sodium (Colace) 100 mg PO BID PRN PRN Reason: Constipation Last Admin: 08/01/17 16:23 Dose: 100 mg Emollient Ointment (Lansinoh Hpa) 0 gm TOP ASDIRECTED PRN PRN Reason: Sore Nipples Ibuprofen (Motrin) 600 mg PO Q6H PRN PRN Reason: Mild pain or fever Last Admin: 08/02/17 02:14 Dose: 600 mg Witch Arianne (Tucks) 1 pad TOP ASDIRECTED PRN PRN Reason: Hemorrhoid pain Discontinued Medications Diphenhydramine HCl (Benadryl) 25 mg IVPUSH Q6H PRN PRN Reason: Pruritis Ephedrine Sulfate (Ephedrine Sulfate) 5 mg IVPUSH ASDIRECTED PRN PRN Reason: Hypotension Fentanyl (Sublimaze) 100 mcg EPIDUR Q3H PRN PRN Reason: Pain Fentanyl/Bupivacaine HCl (Fentanyl/Bupivacaine/Ns 2 Mcg-0.125% 100 Ml) 100 ml EPIDUR ASDIRECTED ROBERTO Ampicillin Sodium 2 gm/ Sodium (Chloride) 100 mls @ 200 mls/hr IV ONETIME ONE Stop: 07/31/17 08:29 Last Admin: 07/31/17 08:45 Dose: 200 mls/hr Ampicillin Sodium 1 gm/ Sodium (Chloride) 100 mls @ 200 mls/hr IV Q4H ROBERTO Last Admin: 07/31/17 20:04 Dose: 200 mls/hr Lactated Ringer's (Ringers, Lactated) 1,000 mls @ 40 mls/hr IV ASDIRECTED ROBERTO Last Admin: 07/31/17 18:56 Dose: 500 mls/hr Oxytocin/Lactated Ringer's (Pitocin In Lr 10 Units/1,000 Ml) 10 unit in 1,000 mls @ 500 mls/hr IV .CONTINUOUS ROBERTO Oxytocin/Lactated Ringer's (Pitocin In Lr 10 Units/1,000 Ml) 10 unit in 1,000 mls @ 12 mls/hr IV TITRATE ROBERTO; 2 MUNITS/MIN PRN Reason: Protocol Last Titration: 07/31/17 18:24 Dose: 5 munits/min, 30 mls/hr Nalbuphine HCl (Nubain) 10 mg IVPUSH Q2H PRN PRN Reason: Pain (moderate 4-6) Last Admin: 07/31/17 19:30 Dose: 10 mg Ondansetron HCl (Zofran) 4 mg IVPUSH Q4H PRN PRN Reason: Nausea/Vomiting Ondansetron HCl (Zofran) 4 mg IVPUSH ONETIME PRN PRN Reason: Nausea/Vomiting Sodium Chloride (Saline Flush) 10 ml FLUSH ASDIRECTED PRN PRN Reason: Keep Vein Open - Interaction Infant Disposition, : [place] in Room with Family Interaction: Holding Feeding: Bottle Fed Support Person: - Recovery Exam Fundal Tone: Firm Fundal Level: At Umbilicus Fundal Placement: Midline Lochia Amount: Small Lochia Color: Rubra/Red Perineum Description: Other (see below) Other Perinuem Description: 1st degree laceration without repair Episiotomy/Laceration: Approximated Bladder Status: Voiding Urinary Elimination: Voided - Exam General: Alert, Oriented, Cooperative GI/Abdominal Exam: Soft, Non-Tender Extremities: Normal Inspection Skin: Warm, Dry, Intact - Problem List & Annotations (1) 39 weeks gestation of SNOMED Code(s): 70767293 Code(s): Z3A.39 - 39 WEEKS GESTATION OF Status: Acute Current Visit: Yes (2) Normal labor SNOMED Code(s): 74415500 Code(s): O80 - ENCOUNTER FOR FULL-TERM UNCOMPLICATED DELIVERY; Z37.9 - OUTCOME OF DELIVERY, UNSPECIFIED Status: Acute Current Visit: Yes (3) GBS (group B Streptococcus carrier), +RV culture, currently SNOMED Code(s): 5342351410053, 5748163397061 Code(s): O99.820 - STREPTOCOCCUS B CARRIER STATE COMPLICATING Status: Acute Current Visit: Yes (4) Vaginal delivery SNOMED Code(s): 987281042 Code(s): O80 - ENCOUNTER FOR FULL-TERM UNCOMPLICATED DELIVERY Status: Acute Current Visit: Yes - Problem List Review Problem List Initiated/Reviewed/Updated: Yes - My Orders Last 24 Hours: My Active Orders 08/01/17 21:51 Heat Therapy [OM.PC] PRN 08/01/17 22:16 Cyclobenzaprine [Flexeril] 10 mg PO Q8HR PRN - Assessment Assessment:: 36 y/o G7 now P6016 PPD#2 from at 39 0/7 wks - Plan Plan:: * Routine cares * Bottle feeding * Discharge home today
--- NOTE | 2017-08-02 07:06 | PCM.DCSUM1 ---
Discharge Summary - Discharge Data Discharge Date: 08/02/17 Discharge Disposition: Home, Self-Care 01 Condition: Good - Discharge Diagnosis/Problem(s) (1) 39 weeks gestation of SNOMED Code(s): 23115635 ICD Code: Z3A.39 - 39 WEEKS GESTATION OF Status: Acute Current Visit: Yes (2) Normal labor SNOMED Code(s): 95827651 ICD Code: O80 - ENCOUNTER FOR FULL-TERM UNCOMPLICATED DELIVERY; Z37.9 - OUTCOME OF DELIVERY, UNSPECIFIED Status: Acute Current Visit: Yes (3) GBS (group B Streptococcus carrier), +RV culture, currently SNOMED Code(s): 3375052201727, 0184945113306 ICD Code: O99.820 - STREPTOCOCCUS B CARRIER STATE COMPLICATING Status: Acute Current Visit: Yes (4) Vaginal delivery SNOMED Code(s): 657485600 ICD Code: O80 - ENCOUNTER FOR FULL-TERM UNCOMPLICATED DELIVERY Status: Acute Current Visit: Yes - Patient Summary/Data Complications: None Consults: None Recommended Follow-up Testing/Procedures: Follow up in 5-6 weeks for check Hospital Course: 36 y/o presented at 39 0/7 wks. Was to have an IOL due to distance from hospital, but initially presented in what was thought to be early labor. GBS prophylaxis done and eventually AROM performed. Contractions did slow, however, and pitocin augmentation begun. She then progressed quickly to complete dilation and underwent an uncomplicated . See delivery note. she did well and was discharged home on PPD#2 - Patient Instructions Diet: Regular Diet as Tolerated Activity: As Tolerated Activity, Other: Pelvic Rest for 6 weeks Driving: May Drive Today Showering/Bathing: May Shower Showering/Bathing, Other: May Bathe Notify Provider of: Fever, Increased Pain, Swelling and Redness, Drainage, Nausea and/or Vomiting - Discharge Plan Home Medications: Home Meds Docusate Sodium [Colace] 100 mg PO BID PRN cap 08/01/17 [Rx] Ibuprofen [IJD: Ibuprofen] 600 mg PO Q6H PRN tablet 08/01/17 [Rx] Referrals: Patti Lagos MD [Primary Care Provider] - (5-6 weeks for check ) - Discharge Summary/Plan Comment DC Time >30 min.: No - Patient Data Vitals - Most Recent: Last Vital Signs Temp 36.7 C 08/02/17 03:20 Pulse 71 08/02/17 03:20 Resp 12 08/02/17 03:20 BP 111/59 L 08/02/17 03:20 Pulse Ox 97 08/02/17 03:20 Weight - Most Recent: 93.894 kg I&O - Last 24 hours: Intake & Output 08/01/17 08/02/17 08/02/17 22:59 06:59 14:59 Intake Total 240 Balance 240 Med Orders - Current: Current Medications Acetaminophen (Tylenol) 650 mg PO Q4H PRN PRN Reason: mild pain or fever Last Admin: 08/01/17 20:09 Dose: 650 mg Benzocaine/Menthol (Dermoplast Pain Relief [place]) 0 gm TOP ASDIRECTED PRN PRN Reason: Perineal Comfort Measure Last Admin: 08/01/17 00:52 Dose: 1 canister Cyclobenzaprine HCl (Flexeril) 10 mg PO Q8HR PRN PRN Reason: back pain Last Admin: 08/01/17 22:33 Dose: 10 mg Docusate Sodium (Colace) 100 mg PO BID PRN PRN Reason: Constipation Last Admin: 08/01/17 16:23 Dose: 100 mg Emollient Ointment (Lansinoh Hpa) 0 gm TOP ASDIRECTED PRN PRN Reason: Sore Nipples Ibuprofen (Motrin) 600 mg PO Q6H PRN PRN Reason: Mild pain or fever Last Admin: 08/02/17 02:14 Dose: 600 mg Witch Arianne (Tucks) 1 pad TOP ASDIRECTED PRN PRN Reason: Hemorrhoid pain Discontinued Medications Diphenhydramine HCl (Benadryl) 25 mg IVPUSH Q6H PRN PRN Reason: Pruritis Ephedrine Sulfate (Ephedrine Sulfate) 5 mg IVPUSH ASDIRECTED PRN PRN Reason: Hypotension Fentanyl (Sublimaze) 100 mcg EPIDUR Q3H PRN PRN Reason: Pain Fentanyl/Bupivacaine HCl (Fentanyl/Bupivacaine/Ns 2 Mcg-0.125% 100 Ml) 100 ml EPIDUR ASDIRECTED ROBERTO Ampicillin Sodium 2 gm/ Sodium (Chloride) 100 mls @ 200 mls/hr IV ONETIME ONE Stop: 07/31/17 08:29 Last Admin: 07/31/17 08:45 Dose: 200 mls/hr Ampicillin Sodium 1 gm/ Sodium (Chloride) 100 mls @ 200 mls/hr IV Q4H ROBERTO Last Admin: 07/31/17 20:04 Dose: 200 mls/hr Lactated Ringer's (Ringers, Lactated) 1,000 mls @ 40 mls/hr IV ASDIRECTED ROBERTO Last Admin: 07/31/17 18:56 Dose: 500 mls/hr Oxytocin/Lactated Ringer's (Pitocin In Lr 10 Units/1,000 Ml) 10 unit in 1,000 mls @ 500 mls/hr IV .CONTINUOUS ROBERTO Oxytocin/Lactated Ringer's (Pitocin In Lr 10 Units/1,000 Ml) 10 unit in 1,000 mls @ 12 mls/hr IV TITRATE ROBERTO; 2 MUNITS/MIN PRN Reason: Protocol Last Titration: 07/31/17 18:24 Dose: 5 munits/min, 30 mls/hr Nalbuphine HCl (Nubain) 10 mg IVPUSH Q2H PRN PRN Reason: Pain (moderate 4-6) Last Admin: 07/31/17 19:30 Dose: 10 mg Ondansetron HCl (Zofran) 4 mg IVPUSH Q4H PRN PRN Reason: Nausea/Vomiting Ondansetron HCl (Zofran) 4 mg IVPUSH ONETIME PRN PRN Reason: Nausea/Vomiting Sodium Chloride (Saline Flush) 10 ml FLUSH ASDIRECTED PRN PRN Reason: Keep Vein Open *Q Meaningful Use (DIS) - VTE *Q VTE Criteria *Q: - Stroke *Q Stroke Criteria *Q: - AMI *Q AMI Criteria *Q:
== END 2017-08-02 09:39 | disposition home or self-care (01) | DRG 560 ==
LOC: JD.OB 07:57 → OBSVTOIN 21:03 → JD.OB 21:03
PROVIDERS: ADMIT Obstetrics & Gynecology; ATTEND Obstetrics & Gynecology
PROC: 10E0XZZ Delivery of Products of Conception, External Approach (ICD-10-PCS; principal; 2017-07-31)
PROC: 10907ZC Drainage of Amniotic Fluid, Therapeutic from Products of Conception, Via Natural or Artificial Opening (ICD-10-PCS; 2017-07-31)
PROC: 00HU33Z Insertion of Infusion Device into Spinal Canal, Percutaneous Approach (ICD-10-PCS; 2017-07-31)
DX: O99.824 Streptococcus B carrier state complicating childbirth (principal); Z3A.39 39 weeks gestation of pregnancy; Z37.0 Single live birth; O70.0 First degree perineal laceration during delivery; Z87.891 Personal history of nicotine dependence
CPT/HCPCS: 36415; 59409; 85027; 86850; 86900; 86901; A9270-GY; J0290; J2300; J2590; J7030; J7120

== ENCOUNTER 2018-10-28 07:09 | Emergency (ER) | payer BC, OTHER ==
[2018-10-28 07:18] VITALS: BP 104/61
[2018-10-28] MEDS ORDERED: Sodium Chloride 0.9% 1,000 ML IV ONE (07:41)
[2018-10-28] MEDS ORDERED: Sodium Chloride 0.9% 10 ML Syringe FLUSH PRN (07:41)
[2018-10-28] MEDS ORDERED: Ondansetron 4 MG/2 ML SDV IVPUSH ONE (07:43)
[2018-10-28] MEDS ORDERED: Famotidine 20 MG/2 ML SDV IVPUSH ONE (07:43)
[2018-10-28] MEDS ORDERED: HYDROmorphone 1 MG/ML Syringe IVPUSH ONE ×3 (07:44→10:04)
--- NOTE | 2018-10-28 07:51 | EDM.PDOC ---
ED HPI GENERAL MEDICAL PROBLEM - General Chief Complaint: Abdominal Pain Stated Complaint: [facility] Time Seen by Provider: 10/28/18 07:29 Source of Information: Reports: Patient, EMS, Provider History Limitations: Reports: No Limitations - History of Present Illness INITIAL COMMENTS - FREE TEXT/NARRATIVE: The patient presents by [facility] ambulance from [facility] for upper abdominal pain. She says this all started yesterday morning. She had pain to the upper abdomen and nausea and vomiting. She denies diarrhea. She has no fever or chills. She has no chest pain or shortness of breath. She is . She is not sure how far along. She has irregular menses and her last normal one that she can remember was in May but she does not think she is 17 weeks. She still has her gallbladder and appendix. She was seen at [facility]. They did some labs. Her CBC looked good. Her lipase was normal. Her HCG was >15,000. She is A positive. They do not have US and they sent her here for an US. She denies spotting, bleeding, vaginal discharge or cramping. Onset: Gradual Duration: Day(s): (2) Location: Reports: Abdomen Quality: Reports: Sharp Severity: Moderate Improves with: Reports: None Worsens with: Reports: None Associated Symptoms: Reports: Nausea/Vomiting. 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 - Past Surgical History Female Surgical History: Reports: Cystoscopy, Ureteral Stent Social & Family History - Family History Family Medical History: Noncontributory Endocrine/Metabolic: Reports: Diabetes, type II - Tobacco Use Smoking Status *Q: Never Smoker - Caffeine Use Caffeine Use: Reports: None - Recreational Drug Use Recreational Drug Use: No - Living Situation & Occupation Living situation: Reports: Occupation: Employed ED ROS GENERAL - Review of Systems Review Of Systems: See Below Constitutional: Reports: No Symptoms HEENT: Reports: No Symptoms Respiratory: Reports: No Symptoms Cardiovascular: Reports: No Symptoms Endocrine: Reports: No Symptoms GI/Abdominal: Reports: Abdominal Pain, Nausea, Vomiting. Denies: Diarrhea : Reports: No Symptoms Musculoskeletal: Reports: No Symptoms ED EXAM, GI/ABD - Physical Exam Exam: See Below Exam Limited By: No Limitations General Appearance: Alert, No Apparent Distress Ears: Normal External Exam Nose: Normal Inspection Head: Atraumatic, Normocephalic Neck: Normal Inspection Respiratory/Chest: No Respiratory Distress, Lungs Clear, Normal Breath Sounds Cardiovascular: Regular Rate, Rhythm, No Edema, No Murmur GI/Abdominal Exam: Soft, No Organomegaly, No Mass, Tender (Moderate tenderness to the upper abdomen) Course - Vital Signs Last Recorded V/S: Last Vital Signs Temp 97.3 F 10/28/18 07:14 Pulse 74 10/28/18 07:14 Resp 16 10/28/18 07:14 BP 104/61 10/28/18 07:14 Pulse Ox 94 L 10/28/18 07:14 - Orders/Labs/Meds Orders: Active Orders 24 hr Category Date Time Status Peripheral IV Care [RC] . DIRECTED Care 10/28/18 07:41 Active CULTURE URINE [RM] Stat Lab 10/28/18 09:20 Received HYDROmorphone [Dilaudid] Med 10/28/18 10:04 Once 0.5 mg IVPUSH ONETIME ONE Sodium Chloride 0.9% [Saline Flush] Med 10/28/18 07:41 Active 10 ml FLUSH ASDIRECTED PRN Peripheral IV Insertion Adult [OM.PC] Routine Oth 10/28/18 07:41 Ordered Medication Orders Sodium Chloride (Saline Flush) 10 ml FLUSH ASDIRECTED PRN PRN Reason: Keep Vein Open Last Admin: 10/28/18 08:01 Dose: 10 ml Labs: Laboratory Tests 10/28/18 10/28/18 Range/Units 07:55 09:20 Sodium 141 (136-145) mEq/L Potassium 3.3 L (3.5-5.1) mEq/L Chloride 108 H (98-107) mEq/L Carbon Dioxide 21 (21-32) mEq/L Anion Gap 15.3 H (5-15) BUN 5 L (7-18) mg/dL Creatinine 0.6 (0.55-1.02) mg/dL Est Cr Clr Drug Dosing 102.52 mL/min Estimated GFR (MDRD) > 60 (>60) mL/min BUN/Creatinine Ratio 8.3 L (14-18) Glucose 97 (74-106) mg/dL Calcium 8.5 (8.5-10.1) mg/dL Total Bilirubin 0.2 (0.2-1.0) mg/dL AST 12 L (15-37) U/L ALT 18 (14-59) U/L Alkaline Phosphatase 97 (46-116) U/L Total Protein 6.7 (6.4-8.2) g/dl Albumin 2.7 L (3.4-5.0) g/dl Globulin 4.0 gm/dL Albumin/Globulin Ratio 0.7 L (1-2) Urine Color Yellow (Yellow) Urine Appearance Slt cloudy H (Clear) Urine pH 6.0 (5.0-8.0) Ur Specific [place] > or = 1.030 (1.005-1.030) Urine Protein 1+ H (Negative) Urine Glucose (UA) Negative (Negative) Urine Ketones Trace H (Negative) Urine Occult Blood Trace-intact H (Negative) Urine Nitrite Positive H (Negative) Urine Bilirubin Negative (Negative) Urine Urobilinogen 0.2 (0.2-1.0) Ur Leukocyte Esterase Negative (Negative) Urine RBC 0-5 (0-5) /hpf Urine WBC 5-10 H (0-5) /hpf Ur Epithelial Cells 10-20 H (0-5) /hpf Urine Bacteria Many H (FEW) /hpf Urine Mucus Moderate H (FEW) /hpf Meds: Medications Generic Name Dose Route Start Last Admin Trade Name Freq PRN Reason Stop Dose Admin Sodium Chloride 10 ml 10/28/18 07:41 10/28/18 08:01 Saline Flush FLUSH 10 ml ASDIRECTED PRN Administration Keep Vein Open Discontinued Medications Generic Name Dose Route Start Last Admin Trade Name Freq PRN Reason Stop Dose Admin Famotidine 20 mg 10/28/18 07:43 10/28/18 07:59 Pepcid IVPUSH 10/28/18 07:44 20 mg ONETIME ONE Administration Hydromorphone HCl 1 mg 10/28/18 07:44 10/28/18 08:00 Dilaudid IVPUSH 10/28/18 07:45 1 mg ONETIME ONE Administration Hydromorphone HCl 0.5 mg 10/28/18 09:26 10/28/18 09:33 Dilaudid IVPUSH 10/28/18 09:27 0.5 mg ONETIME ONE Administration Sodium Chloride 1,000 mls @ 1,000 mls/hr 10/28/18 07:41 10/28/18 07:58 Normal Saline IV 10/28/18 08:40 1,000 mls/hr ONETIME ONE Administration Ondansetron HCl 4 mg 10/28/18 07:43 10/28/18 07:58 Zofran IVPUSH 10/28/18 07:44 4 mg ONETIME ONE Administration - Re-Assessments/Exams Free Text/Narrative Re-Assessment/Exam: 10/28/18 07:53 I ordered an IV NS 1L bolus, zofran 4mg IV, dilaudid 1mg IV, CMP, UA and an US of her pelvis and upper abdomen. 10/28/18 10:05 Her K was a little low at 3.3. The rest of her CMP looks good. Her UA shows possible contamination versus a UTI. I have ordered a culture and I will call her if we need to start an antibiotic. Her US shows gallstones. No gallbladder wall thickening or biliary duct dilatation is seen. Right upper quadrant abdominal US is otherwise unremarkable. This could be her gallbladder or this could just be gastroenteritis. I will give her some zofran for nausea and a few pills for pain. Her OB US shows a single intrauterine fetus at 12 weeks 6 days. Her GERMAINE is 05/06/19. FHTs are 147. The baby looks fine. I will have her follow up with Dr Lagos. 10/28/18 10:09 Departure - Departure Time of Disposition: 10:10 Disposition: Home, Self-Care 01 Condition: Good Clinical Impression: Gallstones Abdominal pain Qualifiers: Abdominal location: upper abdomen, unspecified Qualified Code(s): R10.10 - Upper abdominal pain, unspecified Vomiting Qualifiers: Vomiting type: unspecified Vomiting Intractability: non-intractable Nausea presence: with nausea Qualified Code(s): R11.2 - Nausea with vomiting, unspecified - Discharge Information *PRESCRIPTION DRUG MONITORING PROGRAM REVIEWED*: No *COPY OF PRESCRIPTION DRUG MONITORING REPORT IN PATIENT MIKO: No Referrals: PCP,None [Primary Care Provider] - Patti Lagos MD [Physician] - 1 Week Forms: ED Department Discharge Additional Instructions: Avoid fried fatty foods. Start with clear liquids today and advance your diet as tolerated tonight. Take the zofran every 6 hours as needed for nausea and vomiting. Take tylenol as needed for pain. If that does not help take the hydrocodone as needed for pain. Follow up with Dr Lagos. Please return if you are worse. - My Orders Last 24 Hours: My Active Orders 10/28/18 07:41 Peripheral IV Care [RC] . DIRECTED Sodium Chloride 0.9% [Saline Flush] 10 ml FLUSH ASDIRECTED PRN Peripheral IV Insertion Adult [OM.PC] Routine 10/28/18 09:20 CULTURE URINE [RM] Stat 10/28/18 10:04 HYDROmorphone [Dilaudid] 0.5 mg IVPUSH ONETIME ONE - Assessment/Plan Last 24 Hours: My Active Orders 10/28/18 07:41 Peripheral IV Care [RC] . DIRECTED Sodium Chloride 0.9% [Saline Flush] 10 ml FLUSH ASDIRECTED PRN Peripheral IV Insertion Adult [OM.PC] Routine 10/28/18 09:20 CULTURE URINE [RM] Stat 10/28/18 10:04 HYDROmorphone [Dilaudid] 0.5 mg IVPUSH ONETIME ONE
--- NOTE | 2018-10-28 09:38 | US ---
Limited abdominal ultrasound: Multiple real-time images of the upper right abdomen were obtained. 2 gallstones are seen within the gallbladder measuring 1.8 cm and 1.7 cm in size. Gallbladder shows no wall thickening. No pericholecystic fluid is seen. No biliary duct dilatation is seen. Liver shows no focal parenchymal abnormality. Right kidney shows no hydronephrosis or mass and has a length of 12.3 cm. Pancreas is incompletely seen. Visualized portions of the pancreas are unremarkable. Portal vein shows normal hepatopedal flow. Impression: 1. Gallstones. No gallbladder wall thickening or biliary duct dilatation is seen. 2. Right upper quadrant abdominal ultrasound is otherwise unremarkable. Diagnostic code #2
--- NOTE | 2018-10-28 09:43 | US ---
Obstetrical ultrasound: Multiple real-time images were obtained transabdominally. Comparison: No prior study for current is available. Measurements: Current ultrasound: GERMAINE 05/06/19, gestational age 12 weeks 6 days Single intrauterine fetus is seen. Amniotic fluid volume is normal. No subchorionic hemorrhage is seen. Maternal ovaries are seen and appear within normal limits. Measurements: Meraux-rump length: 59.56 mm - 12 weeks 4 days BPD: 1.96 cm - 13 weeks 1 day Head circumference: 7.20 cm - 13 weeks 0 days Abdominal circumference: 6.25 cm - 13 weeks 0 days Femur length: 0.80 cm - 12 weeks 3 days Estimated weight: 63 g (0 lbs. 2 oz.), estimated weight at the 18th percentile for age by current ultrasound Heart rate: 147 BPM Impression: 1. Single intrauterine fetus. Dates as noted above. 2. No complicating process is seen by ultrasound at this time. Diagnostic code #1
[2018-10-28] MEDS ORDERED: Metoclopramide 10 MG/2 ML SDV IVPUSH ONE (10:11)
== END 2018-10-28 13:00 | disposition home or self-care (01) ==
LOC: JD.ED 07:09
DX: K80.80 Other cholelithiasis without obstruction (principal)
CPT/HCPCS: 36415; 76705; 76801; 80053; 81001; 87086; 96361; 96374; 96375; 96376; 99284; J1170; J2405; J2765; J3490; J7040; 87088; 87186

== ENCOUNTER 2019-04-30 01:15 | Inpatient (IN) | payer BC, OTHER ==
[2019-04-30] MEDS ORDERED: Nalbuphine 10 MG/1 ML Vial IVPUSH PRN (17:30)
[2019-04-30] MEDS ORDERED: Lactated Ringers 1,000 ML IV SCH (17:30)
[2019-04-30] MEDS ORDERED: Oxytocin/Lactated Ringers 10 UNIT/1,000 ML BAG IV SCH ×2 (17:30)
[2019-04-30] MEDS ORDERED: Sodium Chloride 0.9% 10 ML Syringe FLUSH PRN (17:30)
[2019-04-30] MEDS ORDERED: Ondansetron 4 MG/2 ML SDV IVPUSH PRN (17:30)
--- NOTE | 2019-04-30 17:35 | PCM.LDHP ---
L&D History of Present Illness - General Date of Service: 04/30/19 Admit Problem/Dx: Patient Status Order with Admit Dx/Problem 04/30/19 17:30 Patient Status [ADT] Routine Admission Diagnosis/Problem Admission Diagnosis/Problem Normal in third trimester Source of Information: Patient History Limitations: Reports: No Limitations - History of Present Illness Introduction:: Patient is a 38 y/o at 39 1/7 wks who presents for elective IOL. Doing well. notes some contractions, but nothing patterned. No other issues. - Related Data Allergies/Adverse Reactions: Allergies Allergy/AdvReac Type Severity Reaction Status Date / Time No Known Allergies Allergy Verified 10/28/18 07:17 Home Medications: Home Meds . 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: , Spontaneous : 8 Para: 6 LMP (Approximate): - Past Surgical History Female Surgical History: Reports: Cystoscopy, Ureteral Stent Social & Family History - Family History Family Medical History: Noncontributory Endocrine/Metabolic: Reports: Diabetes, type II - Tobacco Use Smoking Status *Q: Never Smoker - Caffeine Use Caffeine Use: Reports: None - Alcohol Use Alcohol Use History: No - Recreational Drug Use Recreational Drug Use: No - Living Situation & Occupation Living situation: Reports: Occupation: Employed H&P Review of Systems - Review of Systems: Review Of Systems: See Below General: Reports: No Symptoms Pulmonary: Reports: No Symptoms Cardiovascular: Reports: No Symptoms Gastrointestinal: Reports: No Symptoms Genitourinary: Reports: No Symptoms Musculoskeletal: Reports: No Symptoms Psychiatric: Reports: No Symptoms Neurological: Reports: No Symptoms L&D Exam - Exam Exam: See Below - OB Specific Contraction Intensity: Irritability Movement: Active Heart Tones: Present Heart Tones per Min: 135 Heart Rate (FHR) Variability: Moderate (6-25 bmp) Presentation: Vertex - Sierra Score Sierra Score Cervix Position: Posterior Sierra Score Consistency: Soft Sierra Score Effacement: 51-70% Sierra Score Dilation: 3-4 cm Sierra Score Infant's Station: -2 Sierra Score Total: 7 - Exam General: Alert, Oriented, Cooperative Lungs: Clear to Auscultation, Normal Respiratory Effort Cardiovascular: Regular Rate, Regular Rhythm GI/Abdominal Exam: Soft, Non-Tender Genitourinary: Normal external exam Extremities: Normal Inspection Skin: Warm, Dry, Intact - Patient Data Result Diagrams: 04/30/19 17:48 - Problem List (1) Rubella non-immune status, antepartum SNOMED Code(s): 682331329 ICD Code: O99.89 - OTH DISEASES AND CONDITIONS COMPL PREG/CHLDBRTH; Z28.3 - UNDERIMMUNIZATION STATUS Status: Acute Current Visit: Yes (2) 39 weeks gestation of SNOMED Code(s): 28612036 ICD Code: Z3A.39 - 39 WEEKS GESTATION OF Status: Acute Current Visit: No Problem List Initiated/Reviewed/Updated: Yes Orders Last 24hrs: Active Orders 24 hr Category Date Time Status Patient Status [ADT] Routine ADT 04/30/19 17:30 Ordered Communication Order [RC] ASDIRECTED Care 04/30/19 17:30 Ordered Communication Order [RC] ASDIRECTED Care 04/30/19 17:30 Ordered Communication Order [RC] ASDIRECTED Care 04/30/19 17:30 Ordered Monitoring [RC] INTERMITTENT Care 04/30/19 17:30 Ordered Non Stress Test [RC] PER UNIT ROUTINE Care 04/30/19 17:30 Ordered Notify Provider [RC] ASDIRECTED Care 04/30/19 17:30 Ordered Notify Provider [RC] PRN Care 04/30/19 17:30 Ordered Peripheral IV Care [RC] . DIRECTED Care 04/30/19 17:30 Ordered Up ad Wendy [RC] ASDIRECTED Care 04/30/19 17:31 Ordered Vaginal Exam [RC] ASDIRECTED Care 04/30/19 17:30 Ordered Vital Signs [RC] ASDIRECTED Care 04/30/19 17:30 Ordered Vital Signs [RC] PER UNIT ROUTINE Care 04/30/19 17:30 Ordered Regular Diet [DIET] Diet 04/30/19 Dinner Ordered CBC W/O DIFF,HEMOGRAM [HEME] Routine Lab 04/30/19 17:30 Ordered RAPID PLASMA REAGIN,RPR [CHEM] Routine Lab 04/30/19 17:30 Ordered TYPE AND SCREEN [BBK] Routine Lab 04/30/19 17:30 Ordered Lactated Ringers [Ringers, Lactated] 1,000 ml Med 04/30/19 17:30 Ordered IV ASDIRECTED Nalbuphine [Nubain] Med 04/30/19 17:30 Ordered 10 mg IVPUSH Q2H PRN Ondansetron [Zofran] Med 04/30/19 17:30 Ordered 4 mg IVPUSH Q4H PRN Oxytocin/Lactated Ringers [Pitocin in LR 10 Units/1,000 Med 04/30/19 17:30 Ordered ML] 10 unit in 1,000 ml IV .CONTINUOUS Oxytocin/Lactated Ringers [Pitocin in LR 10 Units/1,000 Med 04/30/19 17:30 Ordered ML] 10 unit in 1,000 ml IV TITRATE Sodium Chloride 0.9% [Saline Flush] Med 04/30/19 17:30 Ordered 10 ml FLUSH ASDIRECTED PRN Electronic Heart Tones Internal [WOMSER] Per Unit Ot 04/30/19 17:30 Ordered Routine Peripheral IV Insertion Adult [OM.PC] Routine Ot 04/30/19 17:30 Ordered Medication Orders Lactated Ringer's (Ringers, Lactated) 1,000 mls @ 40 mls/hr IV ASDIRECTED ROBERTO Oxytocin/Lactated Ringer's (Pitocin In Lr 10 Units/1,000 Ml) 10 unit in 1,000 mls @ 12 mls/hr IV TITRATE ROBERTO; Protocol Oxytocin/Lactated Ringer's (Pitocin In Lr 10 Units/1,000 Ml) 10 unit in 1,000 mls @ 500 mls/hr IV .CONTINUOUS ROBERTO Nalbuphine HCl (Nubain) 10 mg IVPUSH Q2H PRN PRN Reason: Pain Ondansetron HCl (Zofran) 4 mg IVPUSH Q4H PRN PRN Reason: Nausea/Vomiting Sodium Chloride (Saline Flush) 10 ml FLUSH ASDIRECTED PRN PRN Reason: Keep Vein Open Assessment/Plan Comment:: 38 y/o at 39 1/7 wks presents for IOL * Labs on admission * GBS negative, no need for antibiotics * Pain management per patient preference * Anticipate * MMR after delivery
--- NOTE | 2019-05-01 01:26 | PCM.DEL ---
L & D Note - General Info Date of Service: 05/01/19 - Delivery Note Labor: Induced by ARM, Induced by Oxytocin Delivery Outcome: Livebirth Infant Delivery Method: Spontaneous Vaginal Delivery-Single Infant Delivery Mode: Spontaneous Presentation: Right Occiput Anterior (AIDE) Nuchal Cord: None Anesthesia Type: None Amniotic Fluid Description: Clear Episiotomy Type: None Laceration: None Placenta: Intact, Spontaneous Cord: 3 Vessels Estimated Blood Loss: 200 Resuscitation Needed: Yes : Bulb Syringe, Stimulated, Warmed, [place] Used, Warmer Used Delivery Comments (Free Text/Narrative):: Patient found to be complete and began pushing. With maternal pushing effort head delivered from AIDE presentation. No nuchal cord present. With gentle downward traction the shoulders and body delivered. placed on maternal abdomen. Cord clamped and cut. Cord blood obtained. Placenta allowed time to separate and expelled intact. Inspection of the perineum showed no lacerations - General Info Date of Service: 05/01/19 - Patient Data Vitals - Most Recent: Last Vital Signs Temp 36.7 C 04/30/19 17:32 Pulse 81 04/30/19 17:32 Resp 18 04/30/19 17:32 BP 140/62 04/30/19 17:32 Pulse Ox 99 04/30/19 17:32 Weight - Most Recent: 100.244 kg Lab Results Last 24 Hours: Laboratory Results - last 24 hr 04/30/19 04/30/19 04/30/19 Range/Units 17:48 17:48 17:48 WBC 11.69 H (3.98-10.04) K/mm3 RBC 3.63 L (3.98-5.22) M/mm3 Hgb 7.6 L D (11.2-15.7) gm/L Hct 26.0 L (34.1-44.9) % MCV 71.6 L D (79.4-94.8) fl MCH 20.9 L (25.6-32.2) pg MCHC 29.2 L (32.2-35.5) g/dl RDW Std Deviation 43.0 (36.4-46.3) fL Plt Count 304 (182-369) K/mm3 MPV 10.6 (9.4-12.3) fl RPR Non-reactive (NONREACTIVE) Blood Type A POSITIVE Med Orders - Current: Current Medications Lactated Ringer's (Ringers, Lactated) 1,000 mls @ 40 mls/hr IV ASDIRECTED ROBERTO Last Admin: 04/30/19 19:55 Dose: 40 mls/hr Oxytocin/Lactated Ringer's (Pitocin In Lr 10 Units/1,000 Ml) 10 unit in 1,000 mls @ 12 mls/hr IV TITRATE ROBERTO; Protocol Last Titration: 04/30/19 21:10 Dose: 6 munits/min, 36 mls/hr Oxytocin/Lactated Ringer's (Pitocin In Lr 10 Units/1,000 Ml) 10 unit in 1,000 mls @ 500 mls/hr IV .CONTINUOUS ROBERTO Nalbuphine HCl (Nubain) 10 mg IVPUSH Q2H PRN PRN Reason: Pain Last Admin: 04/30/19 23:49 Dose: 5 mg Ondansetron HCl (Zofran) 4 mg IVPUSH Q4H PRN PRN Reason: Nausea/Vomiting Last Admin: 04/30/19 23:17 Dose: 4 mg Sodium Chloride (Saline Flush) 10 ml FLUSH ASDIRECTED PRN PRN Reason: Keep Vein Open - Problem List & Annotations (1) Rubella non-immune status, antepartum SNOMED Code(s): 257353735 Code(s): O99.89 - OTH DISEASES AND CONDITIONS COMPL PREG/CHLDBRTH; Z28.3 - UNDERIMMUNIZATION STATUS Status: Acute Current Visit: Yes (2) 39 weeks gestation of SNOMED Code(s): 46377690 Code(s): Z3A.39 - 39 WEEKS GESTATION OF Status: Acute Current Visit: No (3) Vaginal delivery SNOMED Code(s): 057989453 Code(s): O80 - ENCOUNTER FOR FULL-TERM UNCOMPLICATED DELIVERY Status: Acute Current Visit: No - Problem List Review Problem List Initiated/Reviewed/Updated: Yes - My Orders Last 24 Hours: My Active Orders 04/30/19 17:30 Patient Status [ADT] Routine Communication Order [RC] ASDIRECTED Communication Order [RC] ASDIRECTED Communication Order [RC] ASDIRECTED Monitoring [RC] INTERMITTENT Notify Provider [RC] ASDIRECTED Notify Provider [RC] PRN Peripheral IV Care [RC] . DIRECTED Vital Signs [RC] ASDIRECTED Lactated Ringers [Ringers, Lactated] 1,000 ml IV ASDIRECTED Nalbuphine [Nubain] 10 mg IVPUSH Q2H PRN Ondansetron [Zofran] 4 mg IVPUSH Q4H PRN Oxytocin/Lactated Ringers [Pitocin in LR 10 Units/1,000 ML] 10 unit in 1,000 ml IV .CONTINUOUS Oxytocin/Lactated Ringers [Pitocin in LR 10 Units/1,000 ML] 10 unit in 1,000 ml IV TITRATE Sodium Chloride 0.9% [Saline Flush] 10 ml FLUSH ASDIRECTED PRN Electronic Heart Tones Internal [WOMSER] Per Unit Routine Peripheral IV Insertion Adult [OM.PC] Routine 04/30/19 17:31 Up ad Wendy [RC] ASDIRECTED 04/30/19 17:48 TYPE AND SCREEN [BBK] Routine 04/30/19 Dinner Regular Diet [DIET] - Assessment Assessment:: 38 y/o G8 now P7017 PPD#0 from at 39 2/7 wks - Plan Plan:: * Routine cares * Encourage breast feeding * Discharge home in 1-2 days * MMR prior to discharge
[2019-05-01] MEDS ORDERED: Ibuprofen 600 MG Tab PO PRN (01:58)
[2019-05-01] MEDS ORDERED: Measles, Mumps & Rubella Vaccine 0.5 ML SDV SUBCUT ONE (01:58)
[2019-05-01] MEDS ORDERED: Docusate Sodium 100 MG Cap PO PRN (01:58)
[2019-05-01] MEDS ORDERED: Witch Hazel Medicated Pads 40/Jar TOP PRN (02:30)
[2019-05-01] MEDS ORDERED: Benzocaine/Menthol 20%-0.5% Spray 56 GM Canister TOP PRN (02:31)
[2019-05-01] MEDS: Acetaminophen 325 MG Tab PO PRN ×3 (06:15→21:21)
[2019-05-01] MEDS: Ketorolac 30 MG/ML SDV IVPUSH SCH ×2 (09:09→15:20)
[2019-05-01] MEDS ORDERED: Acetaminophen/HYDROcodone 325-5 MG Tab PO PRN (17:15)
[2019-05-01] MEDS: Ibuprofen 600 MG Tab PO PRN (21:22)
[2019-05-02] MEDS ORDERED: Acetaminophen/HYDROcodone 325-5 MG Tab PO ONE ×3 (00:43→07:18)
[2019-05-02] MEDS: Ibuprofen 600 MG Tab PO PRN ×2 (04:49→12:21)
--- NOTE | 2019-05-02 06:48 | PCM.PNPP ---
- General Info Date of Service: 05/02/19 Functional Status: Reports: Tolerating Diet, Ambulating, Urinating - Review of Systems General: Reports: No Symptoms Pulmonary: Reports: No Symptoms Cardiovascular: Reports: No Symptoms Gastrointestinal: Reports: Abdominal Pain (Having fairly significant cramping ) Genitourinary: Reports: No Symptoms Musculoskeletal: Reports: No Symptoms Neurological: Reports: No Symptoms - Patient Data Vital Signs - Most Recent: Last Vital Signs Temp 36.4 C 05/02/19 01:36 Pulse 72 05/02/19 01:36 Resp 16 05/02/19 01:36 BP 118/94 H 05/02/19 01:36 Pulse Ox 97 05/02/19 01:36 Weight - Most Recent: 100.244 kg I&O - Last 24 Hours: Intake & Output 05/01/19 05/01/19 05/02/19 14:59 22:59 06:59 Intake Total 120 300 Balance 120 300 Lab Results - Last 24 Hours: Laboratory Results - last 24 hr 04/30/19 Range/Units 17:48 Gel Antibody Screen Negative Med Orders - Current: Current Medications Acetaminophen (Tylenol) 650 mg PO Q4H PRN PRN Reason: mild pain or fever Last Admin: 05/01/19 21:21 Dose: 650 mg Benzocaine/Menthol (Dermoplast Pain Relief [place]) 0 gm TOP ASDIRECTED PRN PRN Reason: Pain Last Admin: 05/01/19 06:14 Dose: 1 canister Docusate Sodium (Colace) 100 mg PO BID PRN PRN Reason: Constipation Ibuprofen (Motrin) 600 mg PO Q6H PRN PRN Reason: Pain Last Admin: 05/02/19 04:49 Dose: 600 mg Witch Arianne (Tucks) 1 pad TOP ASDIRECTED PRN PRN Reason: Pain Last Admin: 05/01/19 06:14 Dose: 1 canister Discontinued Medications Hydrocodone Bitart/Acetaminophen ([place] 325-5 Mg) 2 tab PO Q4H PRN PRN Reason: Pain Last Admin: 05/01/19 17:54 Dose: 2 tab Hydrocodone Bitart/Acetaminophen ([place] 325-5 Mg) 2 tab PO ONETIME ONE Stop: 05/02/19 00:44 Last Admin: 05/02/19 00:59 Dose: 2 tab Lactated Ringer's (Ringers, Lactated) 1,000 mls @ 40 mls/hr IV ASDIRECTED ROBERTO Last Admin: 04/30/19 19:55 Dose: 40 mls/hr Oxytocin/Lactated Ringer's (Pitocin In Lr 10 Units/1,000 Ml) 10 unit in 1,000 mls @ 12 mls/hr IV TITRATE ROBERTO; Protocol Last Titration: 04/30/19 21:10 Dose: 6 munits/min, 36 mls/hr Oxytocin/Lactated Ringer's (Pitocin In Lr 10 Units/1,000 Ml) 10 unit in 1,000 mls @ 500 mls/hr IV .CONTINUOUS ROBERTO Ibuprofen (Motrin) 600 mg PO Q6H PRN PRN Reason: Mild pain or fever Last Admin: 05/01/19 02:45 Dose: 600 mg Ketorolac Tromethamine (Toradol) 30 mg IVPUSH Q6H ROBERTO Stop: 05/01/19 14:01 Last Admin: 05/01/19 15:20 Dose: 30 mg Measles/Mumps/Rubella Vaccine Live (M-M-R Ii Vaccine) 0.5 ml SUBCUT .ONCE ONE Stop: 05/01/19 01:59 Nalbuphine HCl (Nubain) 10 mg IVPUSH Q2H PRN PRN Reason: Pain Last Admin: 04/30/19 23:49 Dose: 5 mg Ondansetron HCl (Zofran) 4 mg IVPUSH Q4H PRN PRN Reason: Nausea/Vomiting Last Admin: 04/30/19 23:17 Dose: 4 mg Sodium Chloride (Saline Flush) 10 ml FLUSH ASDIRECTED PRN PRN Reason: Keep Vein Open - Infant Interaction Disposition, : [place] in Room with Family Interaction: Holding Feeding: Bottle Fed Support Person: - Recovery Exam Fundal Tone: Firm Fundal Level: 1 Fingerbreadths Above Umbilicus Fundal Placement: Midline Lochia Amount: Small Lochia Color: Rubra/Red Perineum Description: Intact, Minimal Bruising/Swelling Bladder Status: Voiding - Exam General: Alert, Oriented, Cooperative GI/Abdominal Exam: Soft, Non-Tender Extremities: Normal Inspection Skin: Warm, Dry, Intact - Problem List & Annotations (1) Rubella non-immune status, antepartum SNOMED Code(s): 805080348 Code(s): O99.89 - OTH DISEASES AND CONDITIONS COMPL PREG/CHLDBRTH; Z28.3 - UNDERIMMUNIZATION STATUS Status: Acute Current Visit: Yes (2) 39 weeks gestation of SNOMED Code(s): 43847052 Code(s): Z3A.39 - 39 WEEKS GESTATION OF Status: Acute Current Visit: No (3) Vaginal delivery SNOMED Code(s): 980019234 Code(s): O80 - ENCOUNTER FOR FULL-TERM UNCOMPLICATED DELIVERY Status: Acute Current Visit: No - Problem List Review Problem List Initiated/Reviewed/Updated: Yes - My Orders Last 24 Hours: My Active Orders 05/01/19 21:20 Ibuprofen [Motrin] 600 mg PO Q6H PRN 05/01/19 Breakfast Regular Diet [DIET] 05/02/19 01:58 Heat Therapy [OM.PC] PRN 05/02/19 06:47 Ready for Discharge [RC] PER UNIT ROUTINE - Assessment Assessment:: 38 y/o G8 now P7017 PPD#1 from at 39 2/7 wks - Plan Plan:: * Routine cares * Bottle feeding * Discharge home today * MMR prior to discharge
--- NOTE | 2019-05-02 06:48 | PCM.DCSUM1 ---
Discharge Summary - Discharge Data Discharge Date: 05/02/19 Discharge Disposition: Home, Self-Care 01 Condition: Good - Referral to Home Health Primary Care Physician: Patti Lagos MD - Discharge Diagnosis/Problem(s) (1) Rubella non-immune status, antepartum SNOMED Code(s): 015380148 ICD Code: O99.89 - OTH DISEASES AND CONDITIONS COMPL PREG/CHLDBRTH; Z28.3 - UNDERIMMUNIZATION STATUS Status: Acute Current Visit: Yes (2) 39 weeks gestation of SNOMED Code(s): 53770432 ICD Code: Z3A.39 - 39 WEEKS GESTATION OF Status: Acute Current Visit: No (3) Vaginal delivery SNOMED Code(s): 670970958 ICD Code: O80 - ENCOUNTER FOR FULL-TERM UNCOMPLICATED DELIVERY Status: Acute Current Visit: No - Patient Summary/Data Complications: None Consults: None Recommended Follow-up Testing/Procedures: Follow up in 3 weeks for check Hospital Course: 38-year-old at 39-1/7 weeks gestation presented for elective induction of labor. This was done with AROM and Pitocin. She progressed well and underwent an uncomplicated vaginal delivery. she did have more bothersome cramping requiring a few doses of [place]. She otherwise did well. Was discharged home on day #1 - Patient Instructions Diet: Regular Diet as Tolerated Activity: As Tolerated Activity, Other: Pelvic rest for 6 weeks Driving: May Drive Today Showering/Bathing: May Shower Showering/Bathing, Other: May Bathe Notify Provider of: Fever, Increased Pain, Swelling and Redness, Drainage, Nausea and/or Vomiting - Discharge Plan *PRESCRIPTION DRUG MONITORING PROGRAM REVIEWED*: Not Applicable *COPY OF PRESCRIPTION DRUG MONITORING REPORT IN PATIENT MIKO: Not Applicable Home Medications: Home Meds Docusate Sodium [Colace] 100 mg PO BID PRN cap 05/01/19 [Rx] Ibuprofen [Motrin] 600 mg PO Q6H PRN tablet 05/01/19 [Rx] Referrals: Patti Lagos MD [Primary Care Provider] - (3 weeks for post check) - Discharge Summary/Plan Comment DC Time >30 min.: No - Patient Data Vitals - Most Recent: Last Vital Signs Temp 36.4 C 05/02/19 01:36 Pulse 72 05/02/19 01:36 Resp 16 05/02/19 01:36 BP 118/94 H 05/02/19 01:36 Pulse Ox 97 05/02/19 01:36 Weight - Most Recent: 100.244 kg I&O - Last 24 hours: Intake & Output 05/01/19 05/01/19 05/02/19 14:59 22:59 06:59 Intake Total 120 300 Balance 120 300 Lab Results - Last 24 hrs: Laboratory Results - last 24 hr 04/30/19 Range/Units 17:48 Gel Antibody Screen Negative Med Orders - Current: Current Medications Acetaminophen (Tylenol) 650 mg PO Q4H PRN PRN Reason: mild pain or fever Last Admin: 05/01/19 21:21 Dose: 650 mg Benzocaine/Menthol (Dermoplast Pain Relief [place]) 0 gm TOP ASDIRECTED PRN PRN Reason: Pain Last Admin: 05/01/19 06:14 Dose: 1 canister Docusate Sodium (Colace) 100 mg PO BID PRN PRN Reason: Constipation Ibuprofen (Motrin) 600 mg PO Q6H PRN PRN Reason: Pain Last Admin: 05/02/19 04:49 Dose: 600 mg Witch Arianne (Tucks) 1 pad TOP ASDIRECTED PRN PRN Reason: Pain Last Admin: 05/01/19 06:14 Dose: 1 canister Discontinued Medications Hydrocodone Bitart/Acetaminophen ([place] 325-5 Mg) 2 tab PO Q4H PRN PRN Reason: Pain Last Admin: 05/01/19 17:54 Dose: 2 tab Hydrocodone Bitart/Acetaminophen ([place] 325-5 Mg) 2 tab PO ONETIME ONE Stop: 05/02/19 00:44 Last Admin: 05/02/19 00:59 Dose: 2 tab Lactated Ringer's (Ringers, Lactated) 1,000 mls @ 40 mls/hr IV ASDIRECTED ROBERTO Last Admin: 04/30/19 19:55 Dose: 40 mls/hr Oxytocin/Lactated Ringer's (Pitocin In Lr 10 Units/1,000 Ml) 10 unit in 1,000 mls @ 12 mls/hr IV TITRATE ROBERTO; Protocol Last Titration: 04/30/19 21:10 Dose: 6 munits/min, 36 mls/hr Oxytocin/Lactated Ringer's (Pitocin In Lr 10 Units/1,000 Ml) 10 unit in 1,000 mls @ 500 mls/hr IV .CONTINUOUS ROBERTO Ibuprofen (Motrin) 600 mg PO Q6H PRN PRN Reason: Mild pain or fever Last Admin: 05/01/19 02:45 Dose: 600 mg Ketorolac Tromethamine (Toradol) 30 mg IVPUSH Q6H ROBERTO Stop: 05/01/19 14:01 Last Admin: 05/01/19 15:20 Dose: 30 mg Measles/Mumps/Rubella Vaccine Live (M-M-R Ii Vaccine) 0.5 ml SUBCUT .ONCE ONE Stop: 05/01/19 01:59 Nalbuphine HCl (Nubain) 10 mg IVPUSH Q2H PRN PRN Reason: Pain Last Admin: 04/30/19 23:49 Dose: 5 mg Ondansetron HCl (Zofran) 4 mg IVPUSH Q4H PRN PRN Reason: Nausea/Vomiting Last Admin: 04/30/19 23:17 Dose: 4 mg Sodium Chloride (Saline Flush) 10 ml FLUSH ASDIRECTED PRN PRN Reason: Keep Vein Open
[2019-05-02 09:11] VITALS: BP 109/74; PULSE 77
== END 2019-05-02 13:15 | disposition home or self-care (01) | DRG 560 ==
LOC: JD.OB 01:15 → OBSVTOIN 05-01 01:15
PROVIDERS: ADMIT Obstetrics & Gynecology; ATTEND Obstetrics & Gynecology
PROC: 10E0XZZ Delivery of Products of Conception, External Approach (ICD-10-PCS; principal; 2019-05-01)
PROC: 10907ZC Drainage of Amniotic Fluid, Therapeutic from Products of Conception, Via Natural or Artificial Opening (ICD-10-PCS; 2019-05-01)
PROC: 3E033VJ Introduction of Other Hormone into Peripheral Vein, Percutaneous Approach (ICD-10-PCS; 2019-05-01)
DX: O80 Encounter for full-term uncomplicated delivery (principal); Z3A.39 39 weeks gestation of pregnancy; Z37.0 Single live birth
CPT/HCPCS: 36415; 59025; 59409; 85027; 86592; 86850; 86900; 86901; 90471; 90707; A9270-GY; J1885; J2300; J2405; J2590; J7120

== ENCOUNTER 2019-05-08 17:28 | Emergency (ER) | payer BC, OTHER ==
[2019-05-08 18:03] VITALS: BP 139/89; PULSE 62
[2019-05-08] MEDS ORDERED: Sodium Chloride 0.9% 10 ML Syringe FLUSH PRN (18:45)
[2019-05-08] MEDS ORDERED: Metoclopramide 10 MG/2 ML SDV IVPUSH ONE (18:48)
[2019-05-08] MEDS ORDERED: HYDROmorphone 0.5 MG/0.5 ML Syringe IVPUSH ONE (18:49)
[2019-05-08] MEDS ORDERED: Sodium Chloride 0.9% 1,000 ML IV SCH (19:00)
--- NOTE | 2019-05-08 19:32 | CT ---
Head CT Technique: Multiple axial sections through the brain were obtained. Intravenous contrast was not utilized. Comparison: No prior intracranial imaging is available. Ventricles along with basal cisterns and sulci over the convexities are within normal limits for the patient's age. No abnormal parenchymal densities are seen. No evidence of intracranial hemorrhage. No midline shift or mass effect is seen. Visualized sinuses and paranasal sinuses show nothing acute. No acute calvarial abnormality is appreciated. Impression: 1. Nothing acute is appreciated on noncontrast head CT study. Diagnostic code #1
--- NOTE | 2019-05-08 19:38 | EDM.PDOC ---
ED HPI GENERAL MEDICAL PROBLEM - General Chief Complaint: Neurological Problem Stated Complaint: POSS BLOOD CLOT, UNSPECIFIED AREA Time Seen by Provider: 05/08/19 18:45 Source of Information: Reports: Patient, RN Notes Reviewed - History of Present Illness INITIAL COMMENTS - FREE TEXT/NARRATIVE: 38-year-old female who is about 7 days has been having difficulty with numbness of her left her face for about the past 3 or 4 days. He states she did have some dental pain about 4 days ago lower incisor and then the numbness started shortly after that. The dental pain is gone and only lasted for about a day or so. The numbness involves just the lower left chin area of her face, does not involve the left mid face or the left for head. She's had no facial droop speech difficulty or visual difficulty. He has had moderately severe headache that is been fairly persistent. She does get some but not complete relief from Tylenol. There's been no nausea or vomiting. She eats her and delivery went well. This was her seventh healthy baby. She is having no chest pain or difficulty breathing. No abdominal pain or unusual pelvic discomfort. She is having some vaginal flow and discharge that she states is typical for having had a baby just a short time ago. Treatments SHORT ORDER COOK: Reports: Other (see below) Other Treatments SHORT ORDER COOK: tylenol Headache Pain Score (Numeric/FACES): 7 - Related Data Allergies Allergy/AdvReac Type Severity Reaction Status Date / Time No Known Allergies Allergy Verified 10/28/18 07:17 Home Meds: Home Meds Docusate Sodium [Colace] 100 mg PO BID PRN cap 05/01/19 [Rx] Ibuprofen [Motrin] 600 mg PO Q6H PRN tablet 05/01/19 [Rx] Past Medical History - Past Health History Medical/Surgical History: Denies Medical/Surgical History Other HEENT History: wears glasses Gastrointestinal History: Reports: Cholelithiasis Genitourinary History: Reports: Renal Calculus 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 Denies: Ear Pain, Sinus Problem, Throat Pain Respiratory: Denies: Shortness of Breath, Pleuritic Chest Pain, Cough Cardiovascular: Denies: Chest Pain GI/Abdominal: Denies: Abdominal Pain, Nausea, Vomiting Musculoskeletal: Denies: Neck Pain, Arm Pain, Back Pain, Joint Pain Skin: Denies: Bruising, Rash Neurological: Reports: Headache, Numbness (L chin area of face). Denies: Trouble Speaking, Difficulty Walking, Weakness ED EXAM, NEURO - Physical Exam Exam: See Below General Appearance: Alert, No Apparent Distress Head Exam: Atraumatic. No: Facial Swelling, Facial Tenderness Neck: Supple, Full Range of Motion Respiratory/Chest: No Respiratory Distress, Lungs Clear, Normal Breath Sounds Cardiovascular: Regular Rate, Rhythm GI/Abdominal: Soft, Non-Tender Neurological: Alert, No Motor/Sensory Deficits, Oriented x 3, Other (no facial droop or other facial weakness, speech is normal, no neurologic drift) Extremities: Normal Inspection, Normal Range of Motion Skin Exam: Warm, Dry, Normal Color EKG INTERPRETATION EKG Date: 05/08/19 Rhythm: NSR [place]: Normal P-Wave: Present QRS: Normal ST-T: Normal Course - Vital Signs Last Recorded V/S: Last Vital Signs Temp 98.3 F 05/08/19 18:01 Pulse 62 05/08/19 18:01 Resp 20 05/08/19 18:01 BP 139/89 05/08/19 18:01 Pulse Ox 97 05/08/19 18:01 Orthostatic Blood Pressure [ 138/85 Standing] Orthostatic Blood Pressure [ 142/88 Supine] - Orders/Labs/Meds Orders: Active Orders 24 hr Category Date Time Status EKG 12 Lead [EKG Documentation Completion] [RC] STAT Care 05/08/19 18:46 Active Peripheral IV Care [RC] . DIRECTED Care 05/08/19 18:47 Active Peripheral IV Insertion Adult [OM.PC] Stat Oth 05/08/19 18:46 Ordered Labs: Laboratory Tests 05/08/19 05/08/19 Range/Units 19:15 19:15 WBC 9.60 (3.98-10.04) K/mm3 RBC 3.73 L (3.98-5.22) M/mm3 Hgb 7.7 L (11.2-15.7) gm/dl Hct 26.8 L (34.1-44.9) % MCV 71.8 L (79.4-94.8) fl MCH 20.6 L (25.6-32.2) pg MCHC 28.7 L (32.2-35.5) g/dl RDW Std Deviation 44.0 (36.4-46.3) fL Plt Count 409 H D (182-369) K/mm3 MPV 9.4 (9.4-12.3) fl Neut % (Auto) 62.2 (34.0-71.1) % Lymph % (Auto) 23.6 (19.3-51.7) % Ashley % (Auto) 7.6 (4.7-12.5) % Eos % (Auto) 3.8 (0.7-5.8) Baso % (Auto) 0.2 (0.1-1.2) % Neut # (Auto) 5.97 (1.56-6.13) K/mm3 Lymph # (Auto) 2.27 (1.18-3.74) K/mm3 Ashley # (Auto) 0.73 H (0.24-0.36) K/mm3 Eos # (Auto) 0.36 (0.04-0.36) K/mm3 Baso # (Auto) 0.02 (0.01-0.08) K/mm3 Manual Slide Review Abnormal smear Sodium 140 (136-145) mEq/L Potassium 3.8 (3.5-5.1) mEq/L Chloride 109 H (98-107) mEq/L Carbon Dioxide 23 (21-32) mEq/L Anion Gap 11.8 (5-15) BUN 15 (7-18) mg/dL Creatinine 0.7 (0.55-1.02) mg/dL Est Cr Clr Drug Dosing 87.87 mL/min Estimated GFR (MDRD) > 60 (>60) mL/min BUN/Creatinine Ratio 21.4 H (14-18) Glucose 89 (74-106) mg/dL Calcium 8.6 (8.5-10.1) mg/dL Total Bilirubin 0.2 (0.2-1.0) mg/dL AST 18 (15-37) U/L ALT 25 (14-59) U/L Alkaline Phosphatase 142 H (46-116) U/L Total Protein 6.5 (6.4-8.2) g/dl Albumin 2.6 L (3.4-5.0) g/dl Globulin 3.9 gm/dL Albumin/Globulin Ratio 0.7 L (1-2) Meds: Medications Discontinued Medications Generic Name Dose Route Start Last Admin Trade Name Freq PRN Reason Stop Dose Admin Hydromorphone HCl 0.5 mg 05/08/19 18:49 05/08/19 19:21 Dilaudid IVPUSH 05/08/19 18:50 0.5 mg ONETIME ONE Administration Sodium Chloride 1,000 mls @ 999 mls/hr 05/08/19 19:00 05/08/19 19:19 Normal Saline IV 999 mls/hr ONETIME ROBERTO Administration Ketorolac Tromethamine 20 mg 05/08/19 20:00 05/08/19 20:03 Toradol IVPUSH 20 mg ONETIME ROBERTO Administration Metoclopramide HCl 5 mg 05/08/19 18:48 05/08/19 19:23 Reglan IVPUSH 05/08/19 18:49 5 mg ONETIME ONE Administration Sodium Chloride 10 ml 05/08/19 18:45 05/08/19 19:25 Saline Flush FLUSH 10 ml ASDIRECTED PRN Administration Keep Vein Open - Re-Assessments/Exams Free Text/Narrative Re-Assessment/Exam: 05/08/19 20:[address] is normal. EKG shows normal sinus rhythm. airway traffic controller showed sinus rhythm no ectopy. I strongly believe the numbness of her left jaw area of her face is a potential nerve, peripheral nerve phenomenon and not central. As noted the mid and upper part of her face is not affected and there is no muscle weakness of any type. Have given her Dilaudid and Reglan IV for the headache. That has given her some relief. She states she did have Tylenol about 3 hours ago all is too soon to repeat Tylenol. Order Toradol 20 mg IV. Troponins come back quite low at 7.7. I see that her hemoglobin was 7.6 at the time of her delivery one week ago so that is maintained stable.. We have done orthostatics and she did okay with that. Her blood pressure is good and she is not tachycardic. She is not bleeding or flowing heavily at this time, fairly light discharge. Discharge instructions as documented. Departure - Departure Time of Disposition: 20:11 Disposition: Home, Self-Care 01 Condition: Fair Clinical Impression: Facial paresthesia, Anemia Headache Qualifiers: Headache type: unspecified Headache chronicity pattern: unspecified pattern - Discharge Information Instructions: Migraine Headache, [id number] Referrals: Patti Lagos MD [Primary Care Provider] - Forms: ED Department Discharge Additional Instructions: Rest, drink plenty of water to maintain hydration. Start iron supplement and take that once daily until your hemoglobin returns to a more normal level. Plan to [facility]-up at [facility] early next week, call for appointment. Return to ED as needed if symptoms worsening in any way. - My Orders Last 24 Hours: My Active Orders 05/08/19 18:46 EKG 12 Lead [EKG Documentation Completion] [RC] STAT Peripheral IV Insertion Adult [OM.PC] Stat 05/08/19 18:47 Peripheral IV Care [RC] . DIRECTED - Assessment/Plan Last 24 Hours: My Active Orders 05/08/19 18:46 EKG 12 Lead [EKG Documentation Completion] [RC] STAT Peripheral IV Insertion Adult [OM.PC] Stat 05/08/19 18:47 Peripheral IV Care [RC] . DIRECTED
[2019-05-08] MEDS ORDERED: Ketorolac 30 MG/ML SDV IVPUSH SCH (20:00)
== END 2019-05-08 21:26 | disposition home or self-care (01) ==
LOC: SUPCPDRO 17:28 → JD.ED 17:28
DX: R20.2 Paresthesia of skin (principal); D64.9 Anemia, unspecified; R51 Headache
CPT/HCPCS: 36415; 70450; 80053; 85025; 93005; 96361; 96374; 96375; 99284; J1170; J1885; J2765; J7040; 93010

== ENCOUNTER 2024-04-21 15:50 | Emergency (ER) | payer BC, OTHER ==
[2024-04-21] MEDS: Sodium Chloride 0.9% 1,000 ML IV STA (16:38)
[2024-04-21] MEDS: HYDROmorphone 0.5 MG/0.5 ML Syringe IVPUSH ONE ×2 (16:39→19:46)
[2024-04-21] MEDS: Ondansetron 4 MG/2 ML SDV IVPUSH ONE (16:39)
[2024-04-21] MEDS: Sodium Chloride 0.9% 10 ML Syringe FLUSH PRN (16:41)
[2024-04-21 16:59] LABS: BASOPHILS PERCENT AUTO 0.4 % (0.0-1.0); EOSINOPHILS ABSOLUTE AUTO 0.2 K/mm3 (0.0-0.4); EOSINOPHILS PERCENT AUTO 1.8 % (0.0-6.0); HEMATOCRIT 38.4 % (37.0-47.0); HEMOGLOBIN 12.4 gm/dl (12.0-16.0); IMMATURE GRAN ABSOLUTE AUTO 0.04 K/mm3 (0.00-0.05); IMMATURE GRAN PERCENT AUTO 0.4 % (0.0-0.4); LYMPHOCYTES ABSOLUTE AUTO 1.7 K/mm3 (1.0-4.8); LYMPHOCYTES PERCENT AUTO 16.2 % (24.0-44.0); MEAN CORPUSCULAR HEMOGLOBIN 28.4 pg (28.0-32.0); MEAN CORPUSCULAR HGB CONC 32.3 g/dl (32.0-36.0); MEAN CORPUSCULAR VOLUME 87.9 fl (83.0-99.0); MEAN PLATELET VOLUME 10.7 fl (9.4-12.3); MONOCYTES ABSOLUTE AUTO 0.8 K/mm3 (0.0-0.8); MONOCYTES PERCENT AUTO 8.2 % (0.0-8.0); NEUTROPHILS ABSOLUTE AUTO 7.4 K/mm3 (1.8-7.7); PLATELET COUNT,PLT 267 K/mm3 (150-400); RED BLOOD CELL COUNT 4.37 M/mm3 (4.10-5.30); WHITE BLOOD CELL COUNT,WBC 10.16 K/mm3 (3.9-11.3)
[2024-04-21 17:21] LABS: A/G RATIO 0.9 (1-2); ALBUMIN 3.4 g/dl (3.4-5.0); ANION GAP 14.9 (5-15); BILIRUBIN TOTAL 0.5 mg/dL (0.2-1.0); C-REACTIVE PROTEIN 0.18 mg/dL (<0.30); CALCIUM 8.7 mg/dL (8.5-10.1); CREATININE 0.9 mg/dL (0.55-1.02); EST CRCL DRUG DOSING (CG) 65.06 mL/min; POTASSIUM,K 3.9 mEq/L (3.5-5.1); PROTEIN TOTAL,TP 7.1 g/dl (6.4-8.2)
[2024-04-21 20:38] LABS: APPEARANCE,URINE CLEAR (Clear); BILIRUBIN,URINE NEGATIVE (Negative); COLOR,URINE YELLOW (Yellow); GLUCOSE,URINE NEGATIVE (Negative); KETONES,URINE NEGATIVE (Negative); LEUKOCYTE ESTERASE,URINE NEGATIVE (Negative); NITRITE,URINE NEGATIVE (Negative); OCCULT BLOOD,URINE TRACE-INTACT (Negative); PH,URINE 6.5 (5.0-8.0); PROTEIN,URINE TRACE (Negative); UROBILINOGEN,URINE 0.2 (0.2-1.0)
[2024-04-21 20:48] LABS: SQUAMOUS EPITHELIAL CELLS,UR 0-5 /hpf (0-5); WBC,URINE 0-5 /hpf (0-5)
[2024-04-21 20:49] LABS: BACTERIA,URINE FEW /hpf (FEW); MUCUS,URINE MODERATE /hpf (FEW)
[2024-04-21 21:14] VITALS: BP 120/73; PULSE 60
== END 2024-04-21 21:06 | disposition home or self-care (01) ==
LOC: JD.ED 15:50
DX: O26.831 Pregnancy related renal disease, first trimester (principal); N23 Unspecified renal colic; Z3A.01 Less than 8 weeks gestation of pregnancy
CPT/HCPCS: 36415; 76775; 76817; 80053; 81001; 83690; 84702; 84703; 85025; 86140; 96361; 96374; 96375; 96376; 99285; J1170; J2405; J3490; J7030; 99284

== ENCOUNTER 2024-04-24 01:13 | Emergency (ER) | payer OTHER ==
[2024-04-24] MEDS: Ondansetron 4 MG/2 ML SDV IVPUSH ONE (01:51)
[2024-04-24] MEDS: Sodium Chloride 0.9% 10 ML Syringe FLUSH PRN (01:52)
[2024-04-24 02:18] LABS: BASOPHILS PERCENT AUTO 0.4 % (0.0-1.0); EOSINOPHILS ABSOLUTE AUTO 0.2 K/mm3 (0.0-0.4); EOSINOPHILS PERCENT AUTO 1.4 % (0.0-6.0); HEMATOCRIT 37.2 % (37.0-47.0); HEMOGLOBIN 12.3 gm/dl (12.0-16.0); IMMATURE GRAN ABSOLUTE AUTO 0.07 K/mm3 (0.00-0.05); IMMATURE GRAN PERCENT AUTO 0.6 % (0.0-0.4); LYMPHOCYTES ABSOLUTE AUTO 1.7 K/mm3 (1.0-4.8); LYMPHOCYTES PERCENT AUTO 15.4 % (24.0-44.0); MEAN CORPUSCULAR HEMOGLOBIN 28.9 pg (28.0-32.0); MEAN CORPUSCULAR HGB CONC 33.1 g/dl (32.0-36.0); MEAN CORPUSCULAR VOLUME 87.5 fl (83.0-99.0); MEAN PLATELET VOLUME 10.8 fl (9.4-12.3); MONOCYTES ABSOLUTE AUTO 0.7 K/mm3 (0.0-0.8); NEUTROPHILS ABSOLUTE AUTO 8.5 K/mm3 (1.8-7.7); NEUTROPHILS PERCENT AUTO 76.2 % (41.0-71.0); PLATELET COUNT,PLT 235 K/mm3 (150-400); RED BLOOD CELL COUNT 4.25 M/mm3 (4.10-5.30); WHITE BLOOD CELL COUNT,WBC 11.12 K/mm3 (3.9-11.3)
[2024-04-24] MEDS: Methadone 5 MG Tab PO PRN (02:39)
[2024-04-24] MEDS: Ketorolac 30 MG/ML SDV IVPUSH ONE (02:40)
[2024-04-24 02:42] LABS: ALBUMIN 3.6 g/dl (3.4-5.0); ANION GAP 11.5 (5-15); BILIRUBIN TOTAL 0.5 mg/dL (0.2-1.0); C-REACTIVE PROTEIN 0.26 mg/dL (<0.30); CALCIUM 8.8 mg/dL (8.5-10.1); EST CRCL DRUG DOSING (CG) 58.55 mL/min; MAGNESIUM 1.6 mg/dL (1.8-2.4); POTASSIUM,K 3.5 mEq/L (3.5-5.1); PROTEIN TOTAL,TP 7.3 g/dl (6.4-8.2)
[2024-04-24] MEDS: Tamsulosin 0.4 MG Cap.ER PO ONE (03:29)
[2024-04-24] MEDS ORDERED: Methadone 5 MG Tab PO ONE (03:45)
[2024-04-24 03:52] VITALS: BP 111/66; PULSE 80
== END 2024-04-24 03:53 | disposition home or self-care (01) ==
LOC: JD.ED 01:13
DX: O99.891 Other specified diseases and conditions complicating pregnancy (principal); N13.2 Hydronephrosis with renal and ureteral calculous obstruction; Z3A.01 Less than 8 weeks gestation of pregnancy
CPT/HCPCS: 36415; 76775; 80053; 83735; 85025; 86140; 96374; 99284; A9270; J2405; J3490

== ENCOUNTER 2024-04-26 18:49 | Emergency (ER) | payer OTHER ==
[2024-04-26] MEDS ORDERED: Naloxone 0.4 MG/ML SDV IVPUSH PRN (19:55)
[2024-04-26] MEDS: Ondansetron 4 MG/2 ML SDV IVPUSH ONE (20:27)
[2024-04-26] MEDS: Morphine 4 MG/ML Syringe IVPUSH ONE ×2 (20:27→22:42)
[2024-04-26] MEDS: Sodium Chloride 0.9% 10 ML Syringe FLUSH PRN (20:28)
[2024-04-26] MEDS: Sodium Chloride 0.9% 1,000 ML IV SCH (21:42)
[2024-04-27] MEDS: Morphine 4 MG/ML Syringe IVPUSH ONE (01:14)
[2024-04-27 03:37] LABS: APPEARANCE,URINE CLEAR (Clear); BILIRUBIN,URINE NEGATIVE (Negative); COLOR,URINE YELLOW (Yellow); GLUCOSE,URINE NEGATIVE (Negative); KETONES,URINE 1+ (Negative); LEUKOCYTE ESTERASE,URINE NEGATIVE (Negative); NITRITE,URINE NEGATIVE (Negative); OCCULT BLOOD,URINE 2+ (Negative); PROTEIN,URINE NEGATIVE (Negative); UROBILINOGEN,URINE 0.2 (0.2-1.0)
[2024-04-27 03:44] LABS: BACTERIA,URINE FEW /hpf (FEW); MUCUS,URINE MANY /hpf (FEW); SQUAMOUS EPITHELIAL CELLS,UR 0-5 /hpf (0-5); WBC,URINE 0-5 /hpf (0-5)
[2024-04-27 04:36] VITALS: BP 126/77; PULSE 65
== END 2024-04-27 04:20 | disposition home or self-care (01) ==
LOC: JD.ED 18:49
DX: O99.891 Other specified diseases and conditions complicating pregnancy (principal); N13.2 Hydronephrosis with renal and ureteral calculous obstruction; Z79.899 Other long term (current) drug therapy; Z3A.01 Less than 8 weeks gestation of pregnancy
CPT/HCPCS: 76775; 81001; 93976; 96361; 96374; 96375; 96376; 99284; J2270; J2405; J3490; J7030

== ENCOUNTER 2024-05-19 21:44 | Emergency (ER) | payer OTHER ==
[2024-05-19] MEDS ORDERED: Sodium Chloride 0.9% 10 ML Syringe FLUSH PRN (22:47)
[2024-05-19 23:16] LABS: BASOPHILS ABSOLUTE AUTO 0.1 K/mm3 (0.0-0.2); BASOPHILS PERCENT AUTO 0.3 % (0.0-1.0); EOSINOPHILS ABSOLUTE AUTO 0.3 K/mm3 (0.0-0.4); EOSINOPHILS PERCENT AUTO 1.7 % (0.0-6.0); HEMATOCRIT 40.8 % (37.0-47.0); HEMOGLOBIN 13.4 gm/dl (12.0-16.0); IMMATURE GRAN ABSOLUTE AUTO 0.06 K/mm3 (0.00-0.05); IMMATURE GRAN PERCENT AUTO 0.4 % (0.0-0.4); LYMPHOCYTES PERCENT AUTO 6.6 % (24.0-44.0); MEAN CORPUSCULAR HEMOGLOBIN 28.5 pg (28.0-32.0); MEAN CORPUSCULAR HGB CONC 32.8 g/dl (32.0-36.0); MEAN CORPUSCULAR VOLUME 86.6 fl (83.0-99.0); MEAN PLATELET VOLUME 10.1 fl (9.4-12.3); MONOCYTES ABSOLUTE AUTO 0.6 K/mm3 (0.0-0.8); MONOCYTES PERCENT AUTO 3.8 % (0.0-8.0); NEUTROPHILS ABSOLUTE AUTO 12.7 K/mm3 (1.8-7.7); NEUTROPHILS PERCENT AUTO 87.2 % (41.0-71.0); PLATELET COUNT,PLT 288 K/mm3 (150-400); RED BLOOD CELL COUNT 4.71 M/mm3 (4.10-5.30); WHITE BLOOD CELL COUNT,WBC 14.56 K/mm3 (3.9-11.3)
[2024-05-19] MEDS: HYDROmorphone 0.5 MG/0.5 ML Syringe IVPUSH ONE (23:35)
[2024-05-19] MEDS: Ondansetron 4 MG/2 ML SDV IVPUSH ONE (23:36)
[2024-05-19] MEDS: Sodium Chloride 0.9% 1,000 ML IV SCH (23:36)
[2024-05-19 23:39] LABS: ALBUMIN 3.9 g/dl (3.4-5.0); ANION GAP 14.6 (5-15); BILIRUBIN TOTAL 0.5 mg/dL (0.2-1.0); BUN/CREATININE RATIO 8.3 (14-18); CALCIUM 9.5 mg/dL (8.5-10.1); CREATININE 1.2 mg/dL (0.55-1.02); EST CRCL DRUG DOSING (CG) 48.8 mL/min; POTASSIUM,K 3.6 mEq/L (3.5-5.1)
[2024-05-20 00:03] LABS: SLIDE REVIEW ABNORMAL SMEAR
[2024-05-20 01:06] LABS: APPEARANCE,URINE SLT CLOUDY (Clear); BILIRUBIN,URINE NEGATIVE (Negative); COLOR,URINE LIGHT YELLOW (Yellow); GLUCOSE,URINE NEGATIVE (Negative); KETONES,URINE 2+ (Negative); LEUKOCYTE ESTERASE,URINE NEGATIVE (Negative); NITRITE,URINE NEGATIVE (Negative); OCCULT BLOOD,URINE TRACE-INTACT (Negative); PH,URINE 8.5 (5.0-8.0); PROTEIN,URINE 1+ (Negative); UROBILINOGEN,URINE 0.2 (0.2-1.0)
[2024-05-20 01:25] LABS: BACTERIA,URINE FEW /hpf (FEW); MUCUS,URINE RARE /hpf (FEW); SQUAMOUS EPITHELIAL CELLS,UR 0-5 /hpf (0-5); WBC,URINE 0-5 /hpf (0-5)
[2024-05-20 01:26] LABS: AMORPHOUS SEDIMENT,URINE MODERATE /hpf (NOT SEEN)
[2024-05-20] MEDS: HYDROmorphone 0.5 MG/0.5 ML Syringe IVPUSH ONE (02:17)
[2024-05-20 04:56] VITALS: BP 138/90; PULSE 70
== END 2024-05-20 04:50 | disposition home or self-care (01) ==
LOC: JD.ED 21:44
DX: N20.0 Calculus of kidney (principal); Z79.899 Other long term (current) drug therapy
CPT/HCPCS: 36415; 74176; 80053; 81001; 84484; 84702; 84703; 85025; 93005; 96361; 96374; 96375; 96376; 99284; J1170; J2405; J7030; 93010